=== PATIENT | female | born 1950 | race Native Hawaiian/Other Pacific Islander ===

== ENCOUNTER 2016-09-04 18:48 | Inpatient (IN) | payer MEDICARE, OTHER ==
[2016-09-04 18:48] VITALS: BMI 25.0
--- NOTE | 2016-09-04 19:19 | C.PDOC ---
Time Seen by Provider: 09/04/16 19:18 Chief Complaint (Nursing): Chest Pain Past Medical History Vital Signs: Last Vital Signs Temp Pulse 96 H 09/04/16 18:59 Resp 18 09/04/16 18:59 BP 199/103 H 09/04/16 18:59 Pulse Ox 100 09/04/16 18:59 - Medical History PMH: Arthritis, HTN, Parkinson's Disease - [facility] Procedures REPLACE L HIP JT, FEMORAL W SYNTH SUB, UNCEMENT, OPEN (06/09/16) Family History: States: Unknown Family Hx - Social History Hx Alcohol Use: No Hx Substance Use: No - Immunization History Hx Tetanus Toxoid Vaccination: No Hx Influenza Vaccination: No Hx Pneumococcal Vaccination: No ED Course And Treatment O2 Sat by Pulse Oximetry: 100 Disposition Counseled Patient/Family Regarding: Studies Performed, Diagnosis - Disposition Disposition Time: 19:19
[2016-09-04 19:33] LABS: BASO # 0.1 K/uL (0.0-0.2); BASO % 1.3 % (0.0-2.0); EOS # 0.1 K/uL (0.0-0.7); EOS % 0.9 % (0.0-4.0); HEMATOCRIT 38.3 % (34.0-47.0); LYMPH # 2.7 K/uL (1.0-4.3); LYMPH % 34.3 % (20.0-40.0); MEAN CELL VOLUME 88.6 fL (81.0-99.0); MEAN CORPUSCULAR HEMOGLOBIN 29.4 pg (27.0-31.0); MEAN CORPUSCULAR HGB CONC 33.2 g/dL (33.0-37.0); MEAN PLATELET VOLUME 7.4 fL (7.2-11.7); MONO # 0.5 K/uL (0.0-0.8); MONO % 6.5 % (0.0-10.0); WHITE BLOOD COUNT 7.7 K/uL (4.8-10.8)
--- NOTE | 2016-09-04 19:37 | C.PDOC ---
"History Of Present Illness 66 y/o female PMHx of HTN and Parkinson's disease presents to the ED with complains of chest pain and mild SOB since this afternoon, when she was in the middle of physical therapy. Pain is sternal, nonradiating, non pleuritic, not associated with any nausea/vomiting. Pt is s/p left hip replacement 05/2016. Pt took her daily Metoprolol and Norvasc, and was given 4 ASA and extra dose of Norvasc after CP started. She denies vomiting, headache, dizziness, cough, fever. Time Seen by Provider: 09/04/16 19:18 Chief Complaint (Nursing): Chest Pain History Per: Patient, Family (sister) History/Exam Limitations: language barrier Onset/Duration Of Symptoms: Hrs Current Symptoms Are (Timing): Still Present Severity: Mild Past Medical History Reviewed: Historical Data, Nursing Documentation, Vital Signs Vital Signs: Last Vital Signs Temp 98.4 F 09/04/16 21:10 Pulse 70 09/04/16 21:10 Resp 18 09/04/16 21:10 BP 161/85 H 09/04/16 21:10 Pulse Ox 99 09/04/16 21:54 - Medical History PMH: Arthritis, HTN, Parkinson's Disease - [facility] Procedures REPLACE L HIP JT, FEMORAL W SYNTH SUB, UNCEMENT, OPEN (06/09/16) Family History: States: No Known Family Hx - Social History Hx Alcohol Use: No Hx Substance Use: No - Immunization History Hx Tetanus Toxoid Vaccination: No Hx Influenza Vaccination: No Hx Pneumococcal Vaccination: No Review Of Systems Except As Marked, All Systems Reviewed And Found Negative. Constitutional: Negative for: Fever Cardiovascular: Positive for: Chest Pain. Negative for: Palpitations Respiratory: Positive for: Shortness of Breath. Negative for: Cough Gastrointestinal: Negative for: Nausea, Vomiting, Abdominal Pain, Diarrhea Neurological: Negative for: Dizziness Physical Exam - Physical Exam Appears: Well, Non-toxic, No Acute Distress Skin: Warm, Dry, No Rash Head: Normacephalic Eye(s): bilateral: Normal Inspection Oral Mucosa: Moist Neck: Normal, Normal ROM, Supple Chest: Symmetrical, No Tenderness Cardiovascular: Rhythm Regular Respiratory: Normal Breath Sounds, No Rales, No Rhonchi, No Wheezing Gastrointestinal/Abdominal: Normal Exam, Bowel Sounds, Soft, No Tenderness Extremity: Normal ROM, No Pedal Edema, Calf Tenderness (right, mild), No Deformity, Other (healed surgical scar to left hip) Neurological/Psych: Oriented x3, Other (resting tremor in hands) ED Course And Treatment - Laboratory Results Result Diagrams: 09/04/16 19:30 09/04/16 19:30 O2 Sat by Pulse Oximetry: 99 (on room air) Pulse Ox Interpretation: Normal - CT Scan/US CTA CHEST ANGIO Other Rad Studies (CT/US): Read By Radiologist, Radiology Report Reviewed CT/US Interpretation: [facility]. [facility]. Preliminary Radiology Report Call: [phone]. assistance Online chat: [email or web address] Name: BROOKE ARAUJO Age: 66Years F Date: 09/04/2016. Requesting Physician: YAMILETH WELLS : 1950. [facility] Procedure Ordered As Accession Number of Images. CTA CHEST CT ANGIO CHEST PE PROTOCOL [id number]. Provided Clinical History: CHEST PAIN, S/P HIP REPLACEMENT, R/O PE. Page 1 of 2. EXAM: CT Angiography Chest With Intravenous Contrast. CLINICAL HISTORY: 66 years old, female; Pain; Chest pain ; Type not specified; Additional info: Chest pain, S/P hip. replacement, R/O pe. TECHNIQUE: Axial computed tomographic angiography images of the chest with intravenous contrast using. pulmonary embolism protocol. This CT exam was performed using one or more of the following dose. reduction techniques: automated exposure control, adjustment of the mA and/or kV according to. patient size, and/or use of iterative reconstruction technique. Coronal and sagittal reformatted images were created and reviewed. CONTRAST: 100 mL of visi administered intravenously. EXAM DATE/TIME: 09/04/2016 7:20 PM. COMPARISON: No relevant prior studies available. FINDINGS: Pulmonary arteries : Unremarkable. No pulmonary embolism. Aorta: Mild ectasia of ascending thoracic aorta. No thoracic aortic aneurysm. Lungs: Strands of atelectasis or fibrosis in both lungs. No mass. Pleural space: Unremarkable. No significant effusion. No pneumothorax. Heart: Vascular calcifications including coronary artery calcifications. No significant pericardial. effusion. No evidence of RV dysfunction. Mediastinum: Equivocal wall thickening of the thoracic esophagus which may reflect luminal. collapse, with a component of esophagitis not excluded. Thyroid: Tiny left thyroid calcification. BROOKE ARAUJO | Preliminary Radiology Report. PUBLIC HEALTH ADMINISTRATOR (QA) DISCREPANCY? If there is a discrepancy between the preliminary and final interpretation, please notify [facility] via [email or web address]. If you do not have access to our QA portal, call our QA team at [phone]. CONFIDENTIALITY STATEMENT. This report is intended only for the use of the referring physician, and only in accordance with law, If you received this in error, call [phone]. Page 2 of 2. Bones/joints: Mild thoracic curve with degenerative change. No acute fracture. No dislocation. Soft tissues: Unremarkable. Lymph nodes: Unremarkable. No enlarged lymph nodes. Kidneys and ureters: There is a parapelvic cyst or possibly hydronephrosis involving right kidney not. adequately evaluated. IMPRESSION: 1. Equivocal wall thickening of the thoracic esophagus which may reflect luminal collapse, with a. component of esophagitis not excluded. 2. There is a parapelvic cyst or possibly hydronephrosis involving right kidney not adequately. evaluated. Thank you for allowing us to participate in the care of your patient. Dictated and Authenticated by: Phill Stapleton MD. 2016 9:29 PM Eastern Time ([place] & [place]) Progress Note: Plan: Blood work, EKG, CXR, CTA chest ordered and reviewed. - Scribe Statement The provider has reviewed the documentation as recorded by the Dixie Delgado Provider Attestation: All medical record entries made by the Dixie were at my direction and personally dictated by me. I have reviewed the chart and agree that the record accurately reflects my personal performance of the history, physical exam, medical decision making, and the department course for this patient. I have also personally directed, reviewed, and agree with the discharge instructions and disposition."
[2016-09-04 19:40] LABS: CHLORIDE 101 mmol/L (98-107)
[2016-09-04 19:41] LABS: INR 0.9; POTASSIUM 3.3 mmol/L (3.6-5.2); SODIUM 146 mmol/L (132-148)
[2016-09-04 19:43] LABS: ALB/GLOB RATIO 1.1 (1.0-2.1); ALKALINE PHOSPHATASE 98 U/L (38-126); ALT/SGPT 19 U/L (9-52); AST/SGOT 23 U/L (14-36); BILIRUBIN,TOTAL 0.3 mg/dL (0.2-1.3); BLOOD UREA NITROGEN 20 mg/dL (7-17); CARBON DIOXIDE 28 mmol/L (22-30); GFR AFRICAN-AMERICAN > 60; TOTAL PROTEIN 8.9 g/dL (6.3-8.3)
[2016-09-04 19:44] LABS: CALCIUM 9.7 mg/dl (8.6-10.4); GLUCOSE,RANDOM 89 mg/dL (65-105)
[2016-09-04] MEDS ORDERED: Iodixanol 320 MG/ML 100 ML BOTTLE IV ONE (20:12)
[2016-09-04] MEDS ORDERED: Potassium Chloride 20 mEq ER Tab PO STA (22:20)
[2016-09-04] MEDS ORDERED: Potassium Chloride 20 mEq ER Tab PO ONE (22:27)
--- NOTE | 2016-09-04 23:21 | CP.PCM.HP ---
<Katja Swanson - Last Filed: 09/05/16 02:09> History of Present Illness - History of Present Illness History of Present Illness: CC: "chest pain" HPI: Pt is 66F with medical history significant for Parkinson's disease and hypertension who presents to the emergency department with chest pain. Patient states she developed dull sternal, non-radiating chest pain while she was at physical therapy earlier this afternoon. She admits to mild shortness of breath with onset of chest pain. She denies nausea, vomiting, and diaphoresis. Patient recently had a left hip replacement in May 2016 but has been ambulating and not bed bound. Patient also complains of pain to left hip and right calf. Patient took Aspirin 81 mg x4 tabs and an extra dose of Norvasc 10 mg po prior to arrival to ED. She denies fever, chills, pleurtic chest pain, palpitations, nausea, vomiting, abdominal pain, constipation, diarrhea, and urinary symptoms and currently is resting comfortably. PMH: see HPI Medications: Carbidopa/Levodopa 10-100 tab po TID, Norvasc 10 mg po daily, Metoprolol 100 mg po BID Allergies: NKDA Family History: Mother - hypertension, DMII, COPD/Asthma Surgical History: L hip replacement Social: Never smoker. Denies alcohol and illicit drug use. Present on Admission - Present on Admission Any Indicators Present on Admission: No History of DVT/PE: No History of Uncontrolled Diabetes: No Urinary Catheter: No Decubitus Ulcer Present: No Review of Systems - Constitutional Constitutional: absent: Chills, Fatigue, Fever - EENT Eyes: absent: Change in Vision Ears: absent: Decreased Hearing, Ear Discharge Nose/Mouth/Throat: absent: Nasal Discharge, Nasal Obstruction - Cardiovascular Cardiovascular: Chest Pain, Chest Pain at Rest, Chest Pain with Activity. absent: Leg Edema - Respiratory Respiratory: Dyspnea - Gastrointestinal Gastrointestinal: absent: Abdominal Pain, Constipation, Diarrhea, Nausea, Vomiting - Genitourinary Genitourinary: absent: Change in Urinary Stream, Difficulty Urinating - Musculoskeletal Additional comments: right calf pain , L hip pain - Integumentary Integumentary: absent: New Lesions - Neurological Neurological: Tremor. absent: Confusion, Syncope - Psychiatric Psychiatric: absent: Anxiety, Depression Past Patient History - Past Medical History & Family History Past Medical History?: Yes - Past Social History Smoking Status: Never Smoked - CARDIAC Hx Hypertension: Yes - NEUROLOGICAL Hx Parkinson's Disease: Yes - HEENT Other/Comment: [place] - MUSCULOSKELETAL/RHEUMATOLOGICAL Hx Arthritis: Yes - PSYCHIATRIC Hx Substance Use: No - SURGICAL HISTORY Hx Surgeries: No - ANESTHESIA Hx Anesthesia: No Meds Allergies/Adverse Reactions: Allergies Allergy/AdvReac Type Severity Reaction Status Date / Time No Known Allergies Allergy Verified 09/04/16 19:01 Physical Exam - Constitutional Appears: Non-toxic, In Acute Distress - Head Exam Head Exam: ATRAUMATIC, NORMAL INSPECTION, NORMOCEPHALIC - Eye Exam Eye Exam: EOMI, Normal appearance Pupil Exam: PERRL - ENT Exam ENT Exam: Mucous Membranes Moist, Normal Exam - Neck Exam Neck exam: Positive for: Full Rom - Respiratory Exam Respiratory Exam: Chest Wall Tenderness, Clear to Auscultation Bilateral, NORMAL BREATHING PATTERN. absent: Rales, Rhonchi, Wheezes - Cardiovascular Exam Cardiovascular Exam: +S1, +S2. absent: Bradycardia, Tachycardia - GI/Abdominal Exam GI & Abdominal Exam: Normal Bowel Sounds, Soft. absent: Distended, Firm - Extremities Exam Extremities exam: Positive for: tenderness, pedal pulses present. Negative for : pedal edema Additional comments: right calf tenderness to palpation tenderness to palpation of left hip, surgical scar well healed - Back Exam Back exam: NORMAL INSPECTION - Neurological Exam Neurological exam: Alert, Oriented x3 Additional comments: upper extremity rigidity - Psychiatric Exam Psychiatric exam: Normal Affect, Normal Mood - Skin Skin Exam: Intact, Normal Color Results - Vital Signs Recent Vital Signs: Last Vital Signs Temp 98 F 09/04/16 23:08 Pulse 68 09/04/16 23:08 Resp 18 09/04/16 23:08 BP 139/75 09/04/16 23:08 Pulse Ox 98 09/04/16 23:08 - Labs Result Diagrams: 09/04/16 19:30 09/04/16 19:30 Assessment & Plan - Assessment and Plan (Free Text) Assessment: 1. Chest Pain Troponin I <0.0120 EKG: NSR, ST depression in lateral leads f/u ERIC panel and serial EKGs ASA 81 mg po daily Metoprolol 100 mg po BID Crestor 2.5 mg po HS Morphine given in ED f/u lipid panel, hemoglobin a1c, TSH, T4 Cardiology consulted, Dr. Yaritza Harman, f/u recs 2. Hypertension Continue home medications: Metoprolol 100 mg po BID Norvasc 10 mg po daily Monitor 3. Parkinson's disease Continue home medication: Carbidopa/Levodopa 10-100 mg tab po TID 4. Prophylaxis Lovenox 40 mg SC daily Pepcid 20 mg po daily SCD - Date & Time Date: 09/05/16 Time: 02:18 <Jose Arriaga - Last Filed: 09/05/16 06:26> Results - Vital Signs Recent Vital Signs: Last Vital Signs Temp 98.8 F 09/05/16 01:27 Pulse 75 09/05/16 01:27 Resp 20 09/05/16 01:27 BP 145/94 H 09/05/16 01:27 Pulse Ox 98 09/05/16 01:27 - Labs Result Diagrams: 09/04/16 19:30 09/04/16 19:30 Labs: Laboratory Results - last 24 hr 09/05/16 01:41 Total Creatine Kinase 55 CK-MB (Mass) 0.67 Troponin I, Quant < 0.0120 Assessment & Plan - Date & Time Date: 09/05/16 (I have seen and examined the patient. I agree with the findings and plan of care as documented by Dr. Swanson. Patient with chest pain. History of hypertension. ROMIx3 with EKG. Aspirin and Statin. Continue home meds. Consult to cardio. Monitor for acute changes on tele. ) Time: 06:26 Attending/Attestation - Attestation I have personally seen and examined this patient.: Yes I have fully participated in the care of the patient.: Yes I have reviewed all pertinent clinical information: Yes
--- NOTE | 2016-09-05 08:58 | CP.PCM.PN ---
Subjective - Date & Time of Evaluation Date of Evaluation: 09/05/16 Time of Evaluation: 07:45 - Subjective Subjective: PGY1 Medicine Note - Dr. Waldron Patient seen and examined at bedside, resting comfortably. No overnight events as per nursing. Patient states that her chest pain has lessened in severity, but is still present -dull, aching pain that radiates to the left arm, worse with inspiration. Patient also complains of orthopnea since the end of June, has to sleep lateral recumbent to prevent SOB. +BM, +urination; reports no appetite. C/o intermittent pain to the left hip and right leg X1 week. States right leg pain is localized to the knee and below; also reports that she gets a lump on the lateral knee whenever she takes a shower, but attributes this to arthritis. Patient states she is baseline able to ambulate with walker, but noticed that she now needs more assistance. Denies f/c, abdominal pain, N/V, D/C , back pain, numbness/ tingling, or any other acute complaints. Objective - Vital Signs/Intake and Output Vital Signs (last 24 hours): Temp Pulse Resp BP Pulse Ox 98.3 F 80 20 163/78 H 97 09/05/16 07:17 09/05/16 07:17 09/05/16 07:17 09/05/16 07:17 09/05/16 07:17 - Medications Medications: Current Medications Amlodipine Besylate (Norvasc) 10 mg PO DAILY [facility] Aspirin (Aspirin Chewable) 81 mg PO DAILY [facility] Carbidopa/Levodopa (Sinemet 10/100) 1 tab PO TID [facility] Enoxaparin Sodium (Lovenox) 40 mg SC DAILY [facility] Famotidine (Pepcid) 20 mg PO DAILY [facility] Influenza Virus Vaccine (Afluria) 45 mcg IM .ONCE ONE Stop: 09/07/16 10:01 Pneumococcal Polyvalent Vaccine (Pneumovax 23 Vaccine) 0.5 ml IM .ONCE ONE Stop: 09/07/16 10:01 Rosuvastatin Calcium (Crestor) 2.5 mg PO HS [facility] - Labs Labs: PT 10.5 SECONDS (9.7-12.2) 09/04/16 19:30 INR 0.9 09/04/16 19:30 APTT 32 SECONDS (21-34) 09/04/16 19:30 - Additional Findings Additional findings: - Constitutional Appears: Non-toxic, In Acute Distress - Head Exam Head Exam: ATRAUMATIC, NORMAL INSPECTION, NORMOCEPHALIC - Eye Exam Eye Exam: EOMI, Normal appearance Pupil Exam: PERRL - ENT Exam ENT Exam: Mucous Membranes Moist, Normal Exam - Neck Exam Neck exam: Positive for: Full Rom - Respiratory Exam Respiratory Exam: Chest Wall Tenderness, Clear to Auscultation Bilateral, NORMAL BREATHING PATTERN. absent: Rales, Rhonchi, Wheezes - Cardiovascular Exam Cardiovascular Exam: +S1, +S2. absent: Bradycardia, Tachycardia - GI/Abdominal Exam GI & Abdominal Exam: Normal Bowel Sounds, Soft. absent: Distended, Firm - Extremities Exam Extremities exam: Positive for: tenderness, pedal pulses present. Negative for : pedal edema Additional comments: tenderness to palpation of lower legs bilaterally; cyst-like bumps on anterior aspect of knees bilaterally; well-healed surgical scar on left hip; 5/5 muscle strength in all extremities, sensation intact; full ROM; +pedal pulses bilaterally - Back Exam Back exam: NORMAL INSPECTION - Neurological Exam Neurological exam: Alert, Oriented x3 Additional comments: - upper extremity rigidity - intention tremor in both hands - Psychiatric Exam Psychiatric exam: Normal Affect, Normal Mood - Skin Skin Exam: Intact, Normal Color Assessment and Plan - Assessment and Plan (Free Text) Assessment: 1. Chest Pain ERIC negative x3 EKG: NSR, ST depression in lateral leads ASA 81 mg po daily Metoprolol 100 mg po BID Crestor 2.5 mg po HS Morphine given in ED Normal: lipid panel, hemoglobin a1c, TSH, T4 Cardiology consulted, Dr. Yaritza Harman, f/u recs -> for cardiac cath Mon 09/[address] Joshi (spoke to family/patient) Daughter, Sapna [phone] 2. Hypertension 09/05: 169/97, BP elevated, continue to monitor Continue home medications: Metoprolol 100 mg po BID Norvasc 10 mg po daily Lisinopril 10mg daily (09/05) 3. Parkinson's disease Continue home medication: Carbidopa/Levodopa 10-100 mg tab po TID Neurology consult, Dr. Handley - f/u recs 4. Electrolyte abnormality -Hypokalemia, K3.2 - monitor and replete 5. Prophylaxis Lovenox 40 mg SC daily Pepcid 20 mg po daily SCD
--- NOTE | 2016-09-05 09:03 | CT ---
CT chest with IV contrast Indication: CHEST PAIN, S/P HIP REPLACEMENT, R/O PE Technique: Contiguous axial images were obtained through the chest with intravenous contrast enhancement. Sagittal and coronal reconstructions were generated and reviewed. IV Contrast: 100 mL Visipaque Radiation dose (DLP): 254.75 MGy-cm. Comparison: Chest x-ray performed 08/08/15 Findings: Visualized portions of the inferior thyroid gland appear heterogeneous and contains bilateral tiny calcifications. The mediastinal and hilar vascular structures appear within normal limits. The heart appears within normal limits of size. Atherosclerotic calcifications of the aorta. Mild aortic ectasia. Coronary artery calcifications. No large central or segmental pulmonary embolus evident. Bibasilar atelectasis. No pleural effusion. No pneumothorax. No suspicious pulmonary nodules measuring greater than 5 mm. Esophageal wall thickening. Small hiatal hernia. Limited visualization of the upper abdomen appears grossly unremarkable except for parapelvic cysts versus hydronephrosis of the right kidney, partially imaged. Mild degenerative changes of the spine. Impression: No large central or segmental pulmonary embolus identified. Esophageal wall thickening. Small hiatal hernia. Recommend clinical correlation. Endoscopy may be considered in the proper clinical setting. Right parapelvic cyst versus hydronephrosis, partially imaged upper abdomen. Heterogeneous appearance of the thyroid gland including tiny bilateral calcifications. Outpatient thyroid ultrasound may be considered for further evaluation if indicated. Preliminary impression was provided by virtual radiologic.
--- NOTE | 2016-09-05 10:10 | RAD ---
PROCEDURE: CHEST RADIOGRAPH, 1 VIEW HISTORY: CP COMPARISON: 06/09/2016 FINDINGS: LUNGS: Clear. PLEURA: No pneumothorax or pleural fluid seen. CARDIOVASCULAR: Normal. OSSEOUS STRUCTURES: No significant abnormalities. VISUALIZED UPPER ABDOMEN: Normal. OTHER FINDINGS: None. IMPRESSION: No focal airspace opacity.
[2016-09-05] MEDS: Enoxaparin 40 mg Syringe SC SCH (10:55)
[2016-09-05 12:09] LABS: CHLORIDE 102 mmol/L (98-107); POTASSIUM 3.2 mmol/L (3.6-5.2); SODIUM 143 mmol/L (132-148)
[2016-09-05 12:11] LABS: BILIRUBIN,TOTAL 0.4 mg/dL (0.2-1.3); CARBON DIOXIDE 24 mmol/L (22-30); CHOLESTEROL 301 mg/dL (0-199); GFR AFRICAN-AMERICAN > 60
[2016-09-05 12:12] LABS: ALB/GLOB RATIO 1.2 (1.0-2.1); ALKALINE PHOSPHATASE 96 U/L (38-126); ALT/SGPT 10 U/L (9-52); AST/SGOT 25 U/L (14-36); BLOOD UREA NITROGEN 18 mg/dL (7-17); CALCIUM 9.6 mg/dl (8.6-10.4); GLUCOSE,RANDOM 93 mg/dL (65-105); MAGNESIUM 2.2 mg/dL (1.6-2.3); PHOSPHOROUS 3.7 mg/dL (2.5-4.5); TOTAL PROTEIN 8.6 g/dL (6.3-8.3)
[2016-09-05] MEDS ORDERED: Potassium Chloride 20 mEq/15 ml LIQ UD PO ONE (12:15)
[2016-09-05 12:20] LABS: BASO # 0.1 K/uL (0.0-0.2); BASO % 0.9 % (0.0-2.0); EOS # 0.1 K/uL (0.0-0.7); EOS % 1.3 % (0.0-4.0); LYMPH # 1.9 K/uL (1.0-4.3); LYMPH % 30.2 % (20.0-40.0); MEAN CELL VOLUME 88.9 fL (81.0-99.0); MEAN CORPUSCULAR HEMOGLOBIN 29.2 pg (27.0-31.0); MEAN CORPUSCULAR HGB CONC 32.9 g/dL (33.0-37.0); MEAN PLATELET VOLUME 7.6 fL (7.2-11.7); MONO # 0.5 K/uL (0.0-0.8); MONO % 7.9 % (0.0-10.0); RED CELL DISTRIBUTION WIDTH 13.4 % (11.5-14.5); WHITE BLOOD COUNT 6.4 K/uL (4.8-10.8)
[2016-09-05 12:32] LABS: T4 9.28 ug/dL (5.5-11.0)
[2016-09-05 12:45] LABS: THYROID STIMULATING HORMONE 0.48 mIU/L (0.46-4.68)
--- NOTE | 2016-09-05 13:32 | CP.PCM.PN ---
Subjective - Date & Time of Evaluation Date of Evaluation: 09/05/16 Time of Evaluation: 13:31 - Subjective Subjective: CARDIAC CONSULT DONE . FOR CARDIAC CATH. DR. KIRKPATRICK. Objective - Vital Signs/Intake and Output Vital Signs (last 24 hours): Temp Pulse Resp BP Pulse Ox 98.8 F 87 20 164/83 H 98 09/05/16 12:11 09/05/16 12:44 09/05/16 12:11 09/05/16 12:44 09/05/16 12:11 - Medications Medications: Current Medications Amlodipine Besylate (Norvasc) 10 mg PO DAILY [facility] Last Admin: 09/05/16 10:57 Dose: 10 mg Aspirin (Aspirin Chewable) 81 mg PO DAILY [facility] Last Admin: 09/05/16 10:55 Dose: 81 mg Carbidopa/Levodopa (Sinemet ) 1 tab PO TID [facility] Last Admin: 09/05/16 10:58 Dose: 1 tab Enoxaparin Sodium (Lovenox) 40 mg SC DAILY [facility] Last Admin: 09/05/16 10:55 Dose: 40 mg Famotidine (Pepcid) 20 mg PO DAILY [facility] Last Admin: 09/05/16 10:57 Dose: 20 mg Influenza Virus Vaccine (Afluria) 45 mcg IM .ONCE ONE Stop: 09/07/16 10:01 Lisinopril (Zestril) 10 mg PO DAILY [facility] Last Admin: 09/05/16 12:44 Dose: 10 mg Pneumococcal Polyvalent Vaccine (Pneumovax 23 Vaccine) 0.5 ml IM .ONCE ONE Stop: 09/07/16 10:01 Rosuvastatin Calcium (Crestor) 2.5 mg PO HS [facility] - Labs Labs: 09/05/16 11:55 09/05/16 11:55 PT 10.5 SECONDS (9.7-12.2) 09/04/16 19:30 INR 0.9 09/04/16 19:30 APTT 32 SECONDS (21-34) 09/04/16 19:30
--- NOTE | 2016-09-05 14:31 | CON ---
DATE: 09/05/2016 HISTORY OF PRESENT ILLNESS: This is a 66-year-old [place] female who came to the Emergency Room wit h history of retrosternal pain and chest pain associated with radiation to the left shoulder and left arm. The patient claims this pain is dull aching. The patient also has history of mild shortness o f breath with the chest pain. She denies nausea, vomiting and diaphoresis. The patient recently had left hip replacement, in 05/2016, but has been ambulating. No history of abdominal pain. No palpit ation. REVIEW OF SYSTEMS: CARDIOVASCULAR: As above. RESPIRATORY: Positive for mild shortness of breath. GASTROINTESTINAL: Negative for nausea, vomiting, diarrhea. CENTRAL NERVOUS SYSTEM: No focal neurological complaints offered. EXTREMITIES: No edema of the legs. GENITOURINARY: No urinary complaints. PSYCHIATRIC: The patient is stable. All other systems are negative. PAST MEDICAL HISTORY: History of Parkinson disease. Hypertension. Diabetes. COPD and asthma. FAMILY HISTORY: Positive for diabetes and high blood pressure. The patient had a left hip replaceme nt done recently. SOCIAL HISTORY: Nonsmoker, nonalcoholic, no IVDA. MEDICATIONS: Carbidopa, levodopa, Norvasc and metoprolol. PHYSICAL EXAMINATION: GENERAL: This is a 66-year-old female, awake, alert, comfortable. VITAL SIGNS: Temperature 98 degrees, pulse 68, respiration 18, blood pressure 139/75 mmHg, pulse ox is 98% at room air. HEENT: Normal. NECK: JVP is flat. Carotid: No bruit. LUNGS: No rales, no wheezing. HEART: S1, S2 normal. No gallop, no murmur. ABDOMEN: Soft, nontender, no organomegaly. CENTRAL NERVOUS SYSTEM: No focal neurological deficit. EXTREMITIES: No edema of the legs. LABORATORY DATA: On admission, CBC is within normal limit. Hypokalemia present. EKG is normal sinu s rhythm with first degree AV block. ST depression in lateral leads. IMPRESSION: Chest pain, possible coronary artery disease. ____ negative. Hypertension. Parkinson disease. SUGGESTIONS: Agree with present management. The patient still has persistent chest pain, so she is not a candidate for a stress test. Cardiac catheterization is advised for further coronary artery an d chest pain evaluation. The patient also needs echocardiogram. Control blood pressure. Other work up as needed. Consult with Dr. Joshi for cardiac catheterization. Jakob Harman MD cc: [id number] TT: 09/05/2016 14:30:30 Confirmation # [id number] Dictation # [id number]
[2016-09-05] MEDS: Rosuvastatin Calcium 2.5 mg Tab PO SCH (21:32)
--- NOTE | 2016-09-05 22:47 | CP.PCM.CON ---
History of Present Illness - History of Present Illness History of Present Illness: 66 F with hx of HTN, hyperlipidemia admitted with Unstable angina Cardiac cath recommended by Cardiology consult Dr. Yaritza Harman Patient scheduled for cath Thursday Plan d/w Patient and her family who are in agreement Pt is 66F with medical history significant for Parkinson's disease and hypertension who presents to the emergency department with chest pain. Patient states she developed dull sternal, non-radiating chest pain while she was at physical therapy earlier this afternoon. She admits to mild shortness of breath with onset of chest pain. She denies nausea, vomiting, and diaphoresis. Patient recently had a left hip replacement in May 2016 but has been ambulating and not bed bound. Patient also complains of pain to left hip and right calf. Patient took Aspirin 81 mg x4 tabs and an extra dose of Norvasc 10 mg po prior to arrival to ED. She denies fever, chills, pleurtic chest pain, palpitations, nausea, vomiting, abdominal pain, constipation, diarrhea, and urinary symptoms and currently is resting comfortably. PMH: see HPI Medications: Carbidopa/Levodopa 10-100 tab po TID, Norvasc 10 mg po daily, Metoprolol 100 mg po BID Allergies: NKDA Family History: Mother - hypertension, DMII, COPD/Asthma Surgical History: L hip replacement Social: Never smoker. Denies alcohol and illicit drug use. Present on Admission - Present on Admission Any Indicators Present on Admission: No History of DVT/PE: No History of Uncontrolled Diabetes: No Urinary Catheter: No Decubitus Ulcer Present: No Review of Systems - Constitutional Constitutional: absent: Chills, Fatigue, Fever - EENT Eyes: absent: Change in Vision Ears: absent: Decreased Hearing, Ear Discharge Nose/Mouth/Throat: absent: Nasal Discharge, Nasal Obstruction - Cardiovascular Cardiovascular: Chest Pain, Chest Pain at Rest, Chest Pain with Activity. absent: Leg Edema - Respiratory Respiratory: Dyspnea - Gastrointestinal Gastrointestinal: absent: Abdominal Pain, Constipation, Diarrhea, Nausea, Vomiting - Genitourinary Genitourinary: absent: Change in Urinary Stream, Difficulty Urinating - Musculoskeletal Additional comments: right calf pain , L hip pain - Integumentary Integumentary: absent: New Lesions - Neurological Neurological: Tremor. absent: Confusion, Syncope - Psychiatric Psychiatric: absent: Anxiety, Depression Meds Allergies/Adverse Reactions: Allergies Allergy/AdvReac Type Severity Reaction Status Date / Time No Known Allergies Allergy Verified 09/04/16 19:01 Physical Exam - Constitutional Appears: Non-toxic, In Acute Distress - Head Exam Head Exam: ATRAUMATIC, NORMAL INSPECTION, NORMOCEPHALIC - Eye Exam Eye Exam: EOMI, Normal appearance Pupil Exam: PERRL - ENT Exam ENT Exam: Mucous Membranes Moist, Normal Exam - Neck Exam Neck exam: Positive for: Full Rom - Respiratory Exam Respiratory Exam: Chest Wall Tenderness, Clear to Auscultation Bilateral, NORMAL BREATHING PATTERN. absent: Rales, Rhonchi, Wheezes - Cardiovascular Exam Cardiovascular Exam: +S1, +S2. absent: Bradycardia, Tachycardia - GI/Abdominal Exam GI & Abdominal Exam: Normal Bowel Sounds, Soft. absent: Distended, Firm - Extremities Exam Extremities exam: Positive for: tenderness, pedal pulses present. Negative for : pedal edema Additional comments: right calf tenderness to palpation tenderness to palpation of left hip, surgical scar well healed - Back Exam Back exam: NORMAL INSPECTION - Neurological Exam Neurological exam: Alert, Oriented x3 Additional comments: upper extremity rigidity - Psychiatric Exam Psychiatric exam: Normal Affect, Normal Mood - Skin Skin Exam: Intact, Normal Color Past Patient History - Past Medical History & Family History Past Medical History?: Yes - Past Social History Smoking Status: Never Smoked - CARDIAC Hx Hypertension: Yes - PULMONARY Hx Respiratory Disorders: No - NEUROLOGICAL Hx Parkinson's Disease: Yes - HEENT Other/Comment: TANANA - RENAL Hx Chronic Kidney Disease: No - ENDOCRINE/METABOLIC Hx Endocrine Disorders: No - HEMATOLOGICAL/ONCOLOGICAL Hx Blood Disorders: No - INTEGUMENTARY Hx Dermatological Problems: No - MUSCULOSKELETAL/RHEUMATOLOGICAL Hx Arthritis: Yes - GASTROINTESTINAL Hx Gastrointestinal Disorders: No - GENITOURINARY/GYNECOLOGICAL Hx Genitourinary Disorders: No - PSYCHIATRIC Hx Substance Use: No - SURGICAL HISTORY Hx Surgeries: No - ANESTHESIA Hx Anesthesia: No Meds Allergies/Adverse Reactions: Allergies Allergy/AdvReac Type Severity Reaction Status Date / Time No Known Allergies Allergy Verified 09/04/16 19:01 - Medications Medications: Current Medications Amlodipine Besylate (Norvasc) 10 mg PO DAILY [facility] Last Admin: 09/05/16 10:57 Dose: 10 mg Aspirin (Aspirin Chewable) 81 mg PO DAILY [facility] Last Admin: 09/05/16 10:55 Dose: 81 mg Carbidopa/Levodopa (Sinemet 10/100) 1 tab PO BID [facility] Last Admin: 09/05/16 17:50 Dose: 1 tab Enoxaparin Sodium (Lovenox) 40 mg SC DAILY [facility] Last Admin: 09/05/16 10:55 Dose: 40 mg Famotidine (Pepcid) 20 mg PO DAILY [facility] Last Admin: 09/05/16 10:57 Dose: 20 mg Influenza Virus Vaccine (Afluria) 45 mcg IM .ONCE ONE Stop: 09/07/16 10:01 Lisinopril (Zestril) 10 mg PO DAILY [facility] Last Admin: 09/05/16 12:44 Dose: 10 mg Pneumococcal Polyvalent Vaccine (Pneumovax 23 Vaccine) 0.5 ml IM .ONCE ONE Stop: 09/07/16 10:01 Rosuvastatin Calcium (Crestor) 2.5 mg PO HS [facility] Last Admin: 09/05/16 21:32 Dose: 2.5 mg Results - Vital Signs Recent Vital Signs: Last Vital Signs Temp 98.5 F 09/05/16 21:37 Pulse 82 09/05/16 22:18 Resp 18 09/05/16 21:37 BP 128/72 09/05/16 21:37 Pulse Ox 98 09/05/16 19:41 - Labs Result Diagrams: 09/06/16 07:45 09/06/16 07:45 Labs: Laboratory Results - last 24 hr 09/05/16 09/05/16 09/05/16 01:41 06:39 11:55 WBC 6.4 RBC 4.50 Hgb 13.1 Hct 40.0 MCV 88.9 MCH 29.2 MCHC 32.9 L RDW 13.4 Plt Count 341 MPV 7.6 Neut % (Auto) 59.7 Lymph % (Auto) 30.2 Ferry % (Auto) 7.9 Eos % (Auto) 1.3 Baso % (Auto) 0.9 Neut # 3.8 Lymph # 1.9 Ferry # 0.5 Eos # 0.1 Baso # 0.1 Sodium 143 Potassium 3.2 L Chloride 102 Carbon Dioxide 24 Anion Gap 20 BUN 18 H Creatinine 0.6 L Est GFR ( Amer) > 60 Est GFR (Non-Af Amer) > 60 Random Glucose 93 Hemoglobin A1c 5.4 Calcium 9.6 Phosphorus 3.7 Magnesium 2.2 Total Bilirubin 0.4 AST 25 ALT 10 Alkaline Phosphatase 96 Total Creatine Kinase 55 52 CK-MB (Mass) 0.67 1.05 Troponin I, Quant < 0.0120 0.0150 Total Protein 8.6 H Albumin 4.6 Globulin 4.0 H Albumin/Globulin Ratio 1.2 Triglycerides 137 D Cholesterol 301 H LDL Cholesterol Direct 150 H HDL Cholesterol 75 H Thyroxine (T4) 9.28 TSH 3rd Generation 0.48 Assessment & Plan - Assessment and Plan (Free Text) Assessment: 1. Chest Pain For Cath Thursday 2. Hypertension Continue home medications: Metoprolol 100 mg po BID Norvasc 10 mg po daily Monitor 3. Parkinson's disease Continue home medication: Carbidopa/Levodopa 10-100 mg tab po TID 4. Prophylaxis Lovenox 40 mg SC daily Pepcid 20 mg po daily SCD
--- NOTE | 2016-09-06 07:52 | CP.PCM.PN ---
Subjective - Date & Time of Evaluation Date of Evaluation: 09/06/16 Time of Evaluation: 09:10 - Subjective Subjective: Internal medicine progress note for Dr. Chelo Rojas, PGY-1 Pt S & E at bedside. Pt indicating that she is having mid low back pain, is not eating much. Denies N /V/F/C, SOB, CP, DOZIER. Objective - Vital Signs/Intake and Output Vital Signs (last 24 hours): Temp Pulse Resp BP Pulse Ox 98.9 F 73 20 155/86 H 96 09/06/16 01:10 09/06/16 01:10 09/06/16 01:10 09/06/16 01:10 09/06/16 01:10 Intake and Output: 09/06/16 09/06/16 06:59 18:59 Intake Total 300 Balance 300 - Medications Medications: Current Medications Amlodipine Besylate (Norvasc) 10 mg PO DAILY [facility] Last Admin: 09/05/16 10:57 Dose: 10 mg Aspirin (Aspirin Chewable) 81 mg PO DAILY [facility] Last Admin: 09/05/16 10:55 Dose: 81 mg Carbidopa/Levodopa (Sinemet 10/) 1 tab PO BID [facility] Last Admin: 09/05/16 17:50 Dose: 1 tab Enoxaparin Sodium (Lovenox) 40 mg SC DAILY [facility] Last Admin: 09/05/16 10:55 Dose: 40 mg Famotidine (Pepcid) 20 mg PO DAILY [facility] Last Admin: 09/05/16 10:57 Dose: 20 mg Influenza Virus Vaccine (Afluria) 45 mcg IM .ONCE ONE Stop: 09/07/16 10:01 Lisinopril (Zestril) 10 mg PO DAILY [facility] Last Admin: 09/05/16 12:44 Dose: 10 mg Pneumococcal Polyvalent Vaccine (Pneumovax 23 Vaccine) 0.5 ml IM .ONCE ONE Stop: 09/07/16 10:01 Rosuvastatin Calcium (Crestor) 2.5 mg PO HS [facility] Last Admin: 09/05/16 21:32 Dose: 2.5 mg - Labs Labs: 09/05/16 11:55 09/05/16 11:55 PT 10.5 SECONDS (9.7-12.2) 09/04/16 19:30 INR 0.9 09/04/16 19:30 APTT 32 SECONDS (21-34) 09/04/16 19:30 - Constitutional Appears: Non-toxic, No Acute Distress - Head Exam Head Exam: ATRAUMATIC, NORMAL INSPECTION, NORMOCEPHALIC - Eye Exam Eye Exam: EOMI, Normal appearance, PERRL Pupil Exam: NORMAL ACCOMODATION, PERRL - ENT Exam ENT Exam: Mucous Membranes Moist, Normal Exam - Neck Exam Neck Exam: Full ROM, Normal Inspection - Respiratory Exam Respiratory Exam: Clear to Ausculation Bilateral, NORMAL BREATHING PATTERN. absent: Rales, Rhonchi, Wheezes, Respiratory Distress - Cardiovascular Exam Cardiovascular Exam: REGULAR RHYTHM, +S1, +S2 - GI/Abdominal Exam GI & Abdominal Exam: Soft, Normal Bowel Sounds. absent: Distended, Tenderness - Extremities Exam Extremities Exam: Normal Inspection, Tenderness (over right distal thigh - no masses or lesions noted on exam) - Back Exam Back Exam: NORMAL INSPECTION, tenderness (midline/over spinous process of mid- low back, no lesions noted. ) - Neurological Exam Neurological Exam: Alert, Awake - Psychiatric Exam Psychiatric exam: Normal Affect, Normal Mood - Skin Skin Exam: Dry, Intact, Normal Color, Warm Assessment and Plan - Assessment and Plan (Free Text) Assessment: 1. Chest Pain ERIC negative x3 EKG: NSR, ST depression in lateral leads ASA 81 mg po daily Metoprolol 100 mg po BID Crestor 2.5 mg po HS Normal: lipid panel, hemoglobin a1c, TSH, T4 Pt to be made NPO after MN Thursday for cardiac cath Thursday per Adi 2. Hypertension 09/05: 169/97, BP elevated, continue to monitor Continue home medications: Metoprolol 100 mg po BID Norvasc 10 mg po daily Lisinopril 10mg daily (09/05) 3. Parkinson's disease Continue home medication: Carbidopa/Levodopa 10-100 mg tab po TID FU neuro consult 4. Back pain Capascin cream Heating pad Motrin Monitor 5. Hypokalemia- resolved K 3.8 Monitor 6. Prophylaxis Lovenox 40 mg SC daily Pepcid 20 mg po daily SCD Will DW attending
[2016-09-06 07:59] LABS: BASO # 0.1 K/uL (0.0-0.2); BASO % 1.2 % (0.0-2.0); EOS # 0.1 K/uL (0.0-0.7); EOS % 2.5 % (0.0-4.0); HEMATOCRIT 39.7 % (34.0-47.0); LYMPH # 1.9 K/uL (1.0-4.3); LYMPH % 32.7 % (20.0-40.0); MEAN CORPUSCULAR HEMOGLOBIN 29.2 pg (27.0-31.0); MEAN CORPUSCULAR HGB CONC 32.4 g/dL (33.0-37.0); MEAN PLATELET VOLUME 7.6 fL (7.2-11.7); MONO # 0.4 K/uL (0.0-0.8); MONO % 7.5 % (0.0-10.0); RED CELL DISTRIBUTION WIDTH 13.4 % (11.5-14.5)
[2016-09-06 08:14] LABS: CHLORIDE 103 mmol/L (98-107); SODIUM 145 mmol/L (132-148)
[2016-09-06 08:15] LABS: POTASSIUM 3.8 mmol/L (3.6-5.2)
[2016-09-06 08:16] LABS: CHOLESTEROL 267 mg/dL (0-199); GFR AFRICAN-AMERICAN > 60
[2016-09-06 08:17] LABS: ALB/GLOB RATIO 1.1 (1.0-2.1); ALKALINE PHOSPHATASE 87 U/L (38-126); ALT/SGPT 14 U/L (9-52); AST/SGOT 20 U/L (14-36); BILIRUBIN,TOTAL 0.5 mg/dL (0.2-1.3); BLOOD UREA NITROGEN 27 mg/dL (7-17); CARBON DIOXIDE 27 mmol/L (22-30); GLUCOSE,RANDOM 79 mg/dL (65-105); PHOSPHOROUS 4.1 mg/dL (2.5-4.5); TOTAL PROTEIN 7.9 g/dL (6.3-8.3)
[2016-09-06 08:18] LABS: CALCIUM 9.7 mg/dl (8.6-10.4); MAGNESIUM 2.3 mg/dL (1.6-2.3)
[2016-09-06 08:29] LABS: T4 9.09 ug/dL (5.5-11.0)
[2016-09-06 08:43] LABS: THYROID STIMULATING HORMONE 0.61 mIU/L (0.46-4.68)
[2016-09-06] MEDS: Enoxaparin 40 mg Syringe SC SCH (10:22)
--- NOTE | 2016-09-06 11:13 | CP.PCM.PN ---
Subjective - Date & Time of Evaluation Date of Evaluation: 09/06/16 Time of Evaluation: 11:12 - Subjective Subjective: NEG CP. Objective - Vital Signs/Intake and Output Vital Signs (last 24 hours): Temp Pulse Resp BP Pulse Ox 98.3 F 62 18 144/79 97 09/06/16 08:18 09/06/16 09:07 09/06/16 08:18 09/06/16 08:18 09/06/16 08:18 Intake and Output: 09/06/16 09/06/16 06:59 18:59 Intake Total 300 Balance 300 - Medications Medications: Current Medications Acetaminophen (Tylenol 325mg Tab) 650 mg PO Q6 PRN PRN Reason: Pain, moderate (4-7) Amlodipine Besylate (Norvasc) 10 mg PO DAILY [facility] Last Admin: 09/06/16 10:23 Dose: 10 mg Aspirin (Aspirin Chewable) 81 mg PO DAILY [facility] Last Admin: 09/06/16 10:22 Dose: 81 mg Carbidopa/Levodopa (Sinemet 10/100) 1 tab PO BID [facility] Last Admin: 09/06/16 10:23 Dose: 1 tab Carvedilol (Coreg) 3.125 mg PO BID [facility] Enoxaparin Sodium (Lovenox) 40 mg SC DAILY [facility] Last Admin: 09/06/16 10:22 Dose: 40 mg Famotidine (Pepcid) 20 mg PO DAILY [facility] Last Admin: 09/06/16 10:23 Dose: 20 mg Influenza Virus Vaccine (Afluria) 45 mcg IM .ONCE ONE Stop: 09/07/16 10:01 Lisinopril (Zestril) 10 mg PO DAILY [facility] Last Admin: 09/06/16 10:23 Dose: 10 mg Pneumococcal Polyvalent Vaccine (Pneumovax 23 Vaccine) 0.5 ml IM .ONCE ONE Stop: 09/07/16 10:01 Rosuvastatin Calcium (Crestor) 2.5 mg PO HS [facility] Last Admin: 09/05/16 21:32 Dose: 2.5 mg - Labs Labs: 09/06/16 07:45 09/06/16 07:45 PT 10.5 SECONDS (9.7-12.2) 09/04/16 19:30 INR 0.9 09/04/16 19:30 APTT 32 SECONDS (21-34) 09/04/16 19:30 - Constitutional Appears: No Acute Distress, Chronically Ill - Eye Exam Eye Exam: Normal appearance, PERRL - ENT Exam ENT Exam: Normal Exam - Respiratory Exam Respiratory Exam: Clear to Ausculation Bilateral, NORMAL BREATHING PATTERN - Cardiovascular Exam Cardiovascular Exam: REGULAR RHYTHM, +S1, +S2 - GI/Abdominal Exam GI & Abdominal Exam: Soft, Normal Bowel Sounds - Neurological Exam Neurological Exam: Alert, Awake, CN II-XII Intact, Normal Gait, Oriented x3 - Psychiatric Exam Psychiatric exam: Normal Affect, Normal Mood - Skin Skin Exam: Dry, Intact, Normal Color, Warm Assessment and Plan - Assessment and Plan (Free Text) Assessment: R/O CAD. Plan: FOR CATH THURSDAY.
[2016-09-06] MEDS: Rosuvastatin Calcium 2.5 mg Tab PO SCH (21:14)
[2016-09-06] MEDS: Nitroglycerin 2% Ointment Foilpak UD TOP SCH (21:15)
[2016-09-07 07:18] LABS: BASO # 0.1 K/uL (0.0-0.2); BASO % 0.6 % (0.0-2.0); EOS # 0.2 K/uL (0.0-0.7); EOS % 2.5 % (0.0-4.0); HEMATOCRIT 35.3 % (34.0-47.0); LYMPH # 1.8 K/uL (1.0-4.3); LYMPH % 20.8 % (20.0-40.0); MEAN CELL VOLUME 88.2 fL (81.0-99.0); MEAN CORPUSCULAR HEMOGLOBIN 29.4 pg (27.0-31.0); MEAN CORPUSCULAR HGB CONC 33.3 g/dL (33.0-37.0); MEAN PLATELET VOLUME 7.5 fL (7.2-11.7); MONO # 0.6 K/uL (0.0-0.8); MONO % 7.1 % (0.0-10.0); RED CELL DISTRIBUTION WIDTH 13.3 % (11.5-14.5); WHITE BLOOD COUNT 8.5 K/uL (4.8-10.8)
[2016-09-07 07:37] LABS: CHLORIDE 100 mmol/L (98-107)
[2016-09-07 07:38] LABS: POTASSIUM 3.9 mmol/L (3.6-5.2); SODIUM 139 mmol/L (132-148)
[2016-09-07 07:40] LABS: ALB/GLOB RATIO 1.2 (1.0-2.1); BILIRUBIN,TOTAL 0.7 mg/dL (0.2-1.3); CARBON DIOXIDE 29 mmol/L (22-30); GFR AFRICAN-AMERICAN > 60; TOTAL PROTEIN 7.2 g/dL (6.3-8.3)
[2016-09-07 07:41] LABS: ALKALINE PHOSPHATASE 81 U/L (38-126); ALT/SGPT 17 U/L (9-52); AST/SGOT 18 U/L (14-36); BLOOD UREA NITROGEN 32 mg/dL (7-17); CALCIUM 9.3 mg/dl (8.6-10.4); GLUCOSE,RANDOM 86 mg/dL (65-105); PHOSPHOROUS 4.8 mg/dL (2.5-4.5)
[2016-09-07 07:42] LABS: MAGNESIUM 2.2 mg/dL (1.6-2.3)
--- NOTE | 2016-09-07 09:06 | CARD ---
APPROVED REPORT EKG Measurement Heart [id number] <Conclusion> Normal sinus rhythm
[2016-09-07] MEDS: Nitroglycerin 2% Ointment Foilpak UD TOP SCH (09:57)
[2016-09-07] MEDS: Enoxaparin 40 mg Syringe SC SCH (09:57)
[2016-09-07] MEDS ORDERED: Influenza Virus Vaccine 45 mcg/0.5 ml Syr IM ONE (10:00)
[2016-09-07] MEDS ORDERED: Pneumococcal 23-Valent Vaccine IM ONE (10:00)
--- NOTE | 2016-09-07 10:16 | CP.PCM.PN ---
Subjective - Date & Time of Evaluation Date of Evaluation: 09/07/16 Time of Evaluation: 08:45 - Subjective Subjective: Medical Attending Note: Follow-up: Chest Pain, Parkinson's disease, Hypertension patient seen, and examined at bedside. Patient reports while walking she has chest pain and shortness of breathe. Pending neurology consult recommendations given patient's history of parkinson's disease. Note: patient's preferred language is Tal[place], and speaks fluently Objective - Vital Signs/Intake and Output Vital Signs (last 24 hours): Temp Pulse Resp BP Pulse Ox 97.6 F 70 18 127/72 96 09/07/16 08:58 09/07/16 08:58 09/07/16 08:58 09/07/16 08:58 09/07/16 08:58 - Medications Medications: Current Medications Acetaminophen (Tylenol 325mg Tab) 650 mg PO Q6 PRN PRN Reason: Pain, moderate (4-7) Amlodipine Besylate (Norvasc) 10 mg PO DAILY [facility] Last Admin: 09/07/16 09:56 Dose: 10 mg Aspirin (Aspirin Chewable) 81 mg PO DAILY [facility] Last Admin: 09/07/16 09:56 Dose: 81 mg Carbidopa/Levodopa (Sinemet 10/100) 1 tab PO BID [facility] Last Admin: 09/07/16 09:57 Dose: 1 tab Carvedilol (Coreg) 3.125 mg PO BID [facility] Last Admin: 09/07/16 09:57 Dose: 3.125 mg Enoxaparin Sodium (Lovenox) 40 mg SC DAILY [facility] Last Admin: 09/07/16 09:57 Dose: 40 mg Famotidine (Pepcid) 20 mg PO DAILY [facility] Last Admin: 09/07/16 09:56 Dose: 20 mg Isosorbide Mononitrate (Imdur) 30 mg PO DAILY [facility] Last Admin: 09/07/16 09:57 Dose: 30 mg Lisinopril (Zestril) 10 mg PO DAILY [facility] Last Admin: 09/07/16 09:56 Dose: 10 mg Nitroglycerin (Nitro-Bid 2% Oint) 1 ea TOP Q12 [facility] Last Admin: 09/07/16 09:57 Dose: 1 ea Rosuvastatin Calcium (Crestor) 2.5 mg PO HS [facility] Last Admin: 09/06/16 21:14 Dose: 2.5 mg - Labs Labs: 09/07/16 07:00 09/07/16 07:00 PT 10.5 SECONDS (9.7-12.2) 09/04/16 19:30 INR 0.9 09/04/16 19:30 APTT 32 SECONDS (21-34) 09/04/16 19:30 - Constitutional Appears: Non-toxic, No Acute Distress - Head Exam Head Exam: NORMAL INSPECTION - Eye Exam Eye Exam: EOMI - ENT Exam ENT Exam: Mucous Membranes Dry - Respiratory Exam Respiratory Exam: Clear to Ausculation Bilateral, NORMAL BREATHING PATTERN. absent: Rales, Rhonchi, Wheezes - Cardiovascular Exam Cardiovascular Exam: REGULAR RHYTHM, +S1, +S2. absent: Diastolic murmur, JVD, RRR - GI/Abdominal Exam GI & Abdominal Exam: Soft, Normal Bowel Sounds. absent: Distended, Guarding, Rigid - Extremities Exam Extremities Exam: absent: Pedal Edema, Tenderness - Back Exam Back Exam: absent: CVA tenderness (L), CVA tenderness (R), paraspinal tenderness , rash noted, vertebral tenderness - Neurological Exam Neurological Exam: Alert, Awake, Oriented x3 - Psychiatric Exam Psychiatric exam: Normal Affect, Normal Mood - Skin Skin Exam: Dry, Intact, Normal Color, Warm Assessment and Plan (1) Chest pain of uncertain etiology Status: Acute (2) Parkinson disease Status: Acute (3) Hypertension Status: Acute - Assessment and Plan (Free Text) Assessment: 1. Chest Pain of Unclear etiology ERIC negative x3 EKG: NSR, ST depression in lateral leads Cardiology (Dr. Joshi) on case Patient is NPO after breakfast tomorrow for cardiac catherization hold ASA 81 mg po daily Crestor 2.5 mg po HS Normal: lipid panel, hemoglobin a1c, TSH, T4 Coreg 3.125mg PO bid Imdur 30mg Po daily Lisinopril 10mg Po daily Nitrobid 1 each top Q 12 PRN chest pain 2. Hypertension Coreg 3.125mg Po bid Norvasc 10 mg po daily Lisinopril 10mg daily 3. Parkinson's disease Continue home medication: Carbidopa/Levodopa 10-100 mg tab po TID FU neuro consult: pending 4. Back pain Capascin cream Heating pad d/c Motrin Monitor No complaints 5. Hypokalemia- resolved K 3.8 Monitor 6. Prophylaxis hold Lovenox 40 mg SC daily in anticipation for cardiac catherization in the afternoon hold Pepcid 20 mg po daily [facility]
[2016-09-07] MEDS ORDERED: POLYETHYLENE GLYCOL 3350 17 GM/Dose PACKET PO ONE (10:33)
[2016-09-07] MEDS ORDERED: Nitroglycerin 2% Ointment Foilpak UD TOP PRN (10:39)
--- NOTE | 2016-09-07 16:31 | CP.PCM.PN ---
Subjective - Date & Time of Evaluation Date of Evaluation: 09/07/16 Time of Evaluation: 11:30 - Subjective Subjective: CONDITION SAME. Objective - Vital Signs/Intake and Output Vital Signs (last 24 hours): Temp Pulse Resp BP Pulse Ox 98.4 F 82 20 148/71 97 09/07/16 16:00 09/07/16 16:00 09/07/16 16:00 09/07/16 16:00 09/07/16 16:00 - Medications Medications: Current Medications Acetaminophen (Tylenol 325mg Tab) 650 mg PO Q6 PRN PRN Reason: Pain, moderate (4-7) Amlodipine Besylate (Norvasc) 10 mg PO DAILY [facility] Last Admin: 09/07/16 09:56 Dose: 10 mg Aspirin (Aspirin Chewable) 81 mg PO DAILY [facility] Last Admin: 09/07/16 09:56 Dose: 81 mg Carbidopa/Levodopa (Sinemet 10/100) 1 tab PO BID [facility] Last Admin: 09/07/16 09:57 Dose: 1 tab Carvedilol (Coreg) 3.125 mg PO BID [facility] Last Admin: 09/07/16 09:57 Dose: 3.125 mg Enoxaparin Sodium (Lovenox) 40 mg SC DAILY [facility] Last Admin: 09/07/16 09:57 Dose: 40 mg Famotidine (Pepcid) 20 mg PO DAILY [facility] Last Admin: 09/07/16 09:56 Dose: 20 mg Isosorbide Mononitrate (Imdur) 30 mg PO DAILY [facility] Last Admin: 09/07/16 09:57 Dose: 30 mg Lisinopril (Zestril) 10 mg PO DAILY [facility] Last Admin: 09/07/16 09:56 Dose: 10 mg Nitroglycerin (Nitro-Bid 2% Oint) 1 ea TOP Q12 PRN PRN Reason: Chest pain Rosuvastatin Calcium (Crestor) 2.5 mg PO HS [facility] Last Admin: 09/06/16 21:14 Dose: 2.5 mg - Labs Labs: 09/07/16 07:00 09/07/16 07:00 PT 10.5 SECONDS (9.7-12.2) 09/04/16 19:30 INR 0.9 09/04/16 19:30 APTT 32 SECONDS (21-34) 09/04/16 19:30 - Constitutional Appears: No Acute Distress, Chronically Ill - Eye Exam Eye Exam: Normal appearance, PERRL - ENT Exam ENT Exam: Normal Exam - Respiratory Exam Respiratory Exam: Clear to Ausculation Bilateral, NORMAL BREATHING PATTERN - Cardiovascular Exam Cardiovascular Exam: REGULAR RHYTHM, +S1, +S2 - GI/Abdominal Exam GI & Abdominal Exam: Soft, Normal Bowel Sounds - Back Exam Back Exam: NORMAL INSPECTION - Neurological Exam Neurological Exam: Alert, Awake, CN II-XII Intact, Normal Gait, Oriented x3 - Psychiatric Exam Psychiatric exam: Normal Affect, Normal Mood Assessment and Plan - Assessment and Plan (Free Text) Assessment: R/O CAD. DM. Plan: FOR CARDIAC CATH IN AM.
[2016-09-07] MEDS: Rosuvastatin Calcium 2.5 mg Tab PO SCH (21:12)
--- NOTE | 2016-09-07 23:52 | CARD ---
APPROVED REPORT EKG Measurement Heart [id number] [place] [id number] <Conclusion> Sinus rhythm with 1st degree AV block Cannot rule out Anterior infarct, age undetermined Abnormal ECG
--- NOTE | 2016-09-08 07:49 | CON ---
DATE: 09/05/2016 REASON FOR THE CONSULTATION: Parkinson disease. CHIEF COMPLAINT: The patient was brought into [facility] with a history of chest pain. Because of the Parkinson disease history I was called in to evaluate her for further management. HISTORY OF PRESENTING ILLNESS: The patient is a 66-year-old right-handed Vietnamese female presenting with chest pain. The patient also carries a history of Parkinson disease, and been taking for a long time. No other medication is taken other than Sinemet. At present, she denies any headache, dizziness, cough , or any fevers. PAST MEDICAL HISTORY: Arthritis, hypertension, and Parkinson disease. ALLERGIES: No known allergies. REVIEW OF SYSTEMS: As per H and P. MEDICATIONS: Aspirin, statin, enoxaparin, amlodipine, famotidine, carbidopa/ levodopa, and lisinopril. VITAL SIGNS: Blood pressure 130/78, mean arterial pressure of 95, respiratory rate 16, temperature 98.3, with a pulse rate 79. NECK: Supple. No carotid bruit. HEART SOUNDS: Regular. CHEST: Fair air entry. EXTREMITIES: No edema in legs. NEUROLOGIC EXAMINATION: MENTAL STATUS EXAMINATION: She is awake, alert, oriented to person. She is hard of hearing. Speech is fluent. CRANIAL NERVE EXAMINATION: Visual field intact. Pupils react to light, extraocular movement, roving conjugate gaze. Upward gaze is intact. No facial sensory deficit. No facial asymmetry. 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 Tongue is midline. Good gag. MOTOR EXAMINATION: Outstretched hand with eyes closed, no drift noted. Power is symmetric on either side. DEEP TENDON REFLEXES: Biceps, brachioradialis, triceps 1+. Both knees are absent, both ankles are absent. Plantars are downgoing. COORDINATION: [id number] test: Dysmetria noted. The patient showed some titubation noted. 1. The patient does not show any evidence of a masked face. No resting tremor , no cogwheel rigidity, no retropulsion. No loss shuffling gait or festinating gait. At this point I doubt the patient does have Parkinson disease. 2. The patient does have titubation and the mid-cerebellar dysfunction. 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 WORKUP: Blood test Her WBC 6.4, hemoglobin 13.1, hematocrit 40, platelet 341. PT 10.4, INR 0.9, PTT 32. Sodium 143, potassium 3.2, chloride 102, bicarbonate 22, BUN 18, creatinine 0.6. GFR more than 60. Cholesterol 301, HDL 75, LDL 150. RECOMMENDATIONS: The patient does not have clinical sign of Parkinson disease. The best way to diagnose the patient may be benefited offering a DaTscan, which can be done as outpatient to establish any basal ganglia disease. At this point I do not want her to be on multiple medications, including a Parkinson medication. I would like to taper off twice a day and then a week from now once a day, and then that can be discontinued. If symptoms progressed or changes, then probably she may need medication. While she is in the hospital I will be following her. Otherwise safe to discharge. The patient will be following either or another neurologist for further management, including a DaTscan study for Parkinson disease. Husam Handley MD cc: [id number] TT: 09/05/2016 18:53:37 Confirmation # [id number] Dictation # [id number]
[2016-09-08 08:14] LABS: BASO % 0.4 % (0.0-2.0); EOS # 0.1 K/uL (0.0-0.7); EOS % 1.5 % (0.0-4.0); LYMPH # 1.7 K/uL (1.0-4.3); LYMPH % 21.7 % (20.0-40.0); MEAN CELL VOLUME 88.3 fL (81.0-99.0); MEAN CORPUSCULAR HGB CONC 32.9 g/dL (33.0-37.0); MEAN PLATELET VOLUME 7.8 fL (7.2-11.7); MONO # 0.7 K/uL (0.0-0.8); MONO % 9.6 % (0.0-10.0); RED CELL DISTRIBUTION WIDTH 13.2 % (11.5-14.5); WHITE BLOOD COUNT 7.8 K/uL (4.8-10.8)
[2016-09-08 08:28] LABS: CHLORIDE 101 mmol/L (98-107)
[2016-09-08 08:30] LABS: POTASSIUM 3.6 mmol/L (3.6-5.2); SODIUM 142 mmol/L (132-148)
[2016-09-08 08:31] LABS: ALB/GLOB RATIO 1.1 (1.0-2.1); ALKALINE PHOSPHATASE 84 U/L (38-126); ALT/SGPT 12 U/L (9-52); AST/SGOT 18 U/L (14-36); BILIRUBIN,TOTAL 0.8 mg/dL (0.2-1.3); BLOOD UREA NITROGEN 19 mg/dL (7-17); CARBON DIOXIDE 27 mmol/L (22-30); GFR AFRICAN-AMERICAN > 60; GLUCOSE,RANDOM 81 mg/dL (65-105); TOTAL PROTEIN 7.7 g/dL (6.3-8.3)
[2016-09-08 08:32] LABS: CALCIUM 9.4 mg/dl (8.6-10.4); PHOSPHOROUS 3.8 mg/dL (2.5-4.5)
[2016-09-08 08:33] LABS: MAGNESIUM 2.2 mg/dL (1.6-2.3)
--- NOTE | 2016-09-08 09:08 | CP.PCM.PN ---
<Bi Nobles - Last Filed: 09/08/16 21:06> Subjective - Date & Time of Evaluation Date of Evaluation: 09/08/16 Time of Evaluation: 07:35 - Subjective Subjective: PGY1 Medicine Note - Dr. Sher Patient seen and examined at bedside, resting comfortably. No overnight events as per nursing. Scheduled for Cardiac Cath with Dr. Joshi this afternoon. Patient reports continued chest pain and shortness of breath while ambulating. Pending neurology consult recommendations given patient's history of parkinson' s disease. Denies f/c, abdominal pain, N/V, D/C, back pain, numbness/ tingling, or any other acute complaints. Note: patient's preferred language is Talg[place], and speaks fluently Objective - Vital Signs/Intake and Output Vital Signs (last 24 hours): Temp Pulse Resp BP Pulse Ox 98 F 80 18 192/97 H 97 09/08/16 07:45 09/08/16 08:46 09/08/16 07:45 09/08/16 07:45 09/08/16 07:45 Intake and Output: 09/08/16 09/08/16 06:59 18:59 Intake Total 120 Output Total 1 Balance 119 - Medications Medications: Current Medications Acetaminophen (Tylenol 325mg Tab) 650 mg PO Q6 PRN PRN Reason: Pain, moderate (4-7) Amlodipine Besylate (Norvasc) 10 mg PO DAILY [facility] Last Admin: 09/08/16 08:15 Dose: 10 mg Aspirin (Aspirin Chewable) 81 mg PO DAILY [facility] Last Admin: 09/07/16 09:56 Dose: 81 mg Carbidopa/Levodopa (Sinemet 10/100) 1 tab PO BID [facility] Last Admin: 09/07/16 17:45 Dose: 1 tab Carvedilol (Coreg) 3.125 mg PO BID [facility] Last Admin: 09/08/16 08:16 Dose: 3.125 mg Enoxaparin Sodium (Lovenox) 40 mg SC DAILY [facility] Last Admin: 09/07/16 09:57 Dose: 40 mg Isosorbide Mononitrate (Imdur) 30 mg PO DAILY [facility] Last Admin: 09/07/16 09:57 Dose: 30 mg Lisinopril (Zestril) 10 mg PO DAILY [facility] Last Admin: 09/08/16 08:16 Dose: 10 mg Nitroglycerin (Nitro-Bid 2% Oint) 1 ea TOP Q12 PRN PRN Reason: Chest pain Rosuvastatin Calcium (Crestor) 2.5 mg PO HS [facility] Last Admin: 09/07/16 21:12 Dose: 2.5 mg - Labs Labs: 09/08/16 07:52 09/08/16 07:52 PT 10.5 SECONDS (9.7-12.2) 09/04/16 19:30 INR 0.9 09/04/16 19:30 APTT 32 SECONDS (21-34) 09/04/16 19:30 - Additional Findings Additional findings: - Constitutional Appears: Non-toxic, No Acute Distress - Head Exam Head Exam: NORMAL INSPECTION - Eye Exam Eye Exam: EOMI - ENT Exam ENT Exam: Mucous Membranes Dry - Respiratory Exam Respiratory Exam: Clear to Ausculation Bilateral, NORMAL BREATHING PATTERN. absent: Rales, Rhonchi, Wheezes - Cardiovascular Exam Cardiovascular Exam: REGULAR RHYTHM, +S1, +S2. absent: Diastolic murmur, JVD, RRR - chest pain with radiation to L arm/neck while ambulating - GI/Abdominal Exam GI & Abdominal Exam: Soft, Normal Bowel Sounds. absent: Distended, Guarding, Rigid - Extremities Exam Extremities Exam: absent: Pedal Edema, Tenderness - Back Exam Back Exam: absent: CVA tenderness (L), CVA tenderness (R), paraspinal tenderness , rash noted, vertebral tenderness - Neurological Exam Neurological Exam: Alert, Awake, Oriented x3 - Psychiatric Exam Psychiatric exam: Normal Affect, Normal Mood - Skin Skin Exam: Dry, Intact, Normal Color, Warm Assessment and Plan - Assessment and Plan (Free Text) Assessment: 1. Chest Pain of Unclear etiology ERIC negative x3 EKG: NSR, ST depression in lateral leads Cardiology (Dr. Joshi) on case s/p Cardiac Cath 09/08 -> Non obstructive coronaries, Normal EF, Control HTN, see full report. Cardiology (Dr. Leonel Harman) on case Resume ASA 81 mg po daily Crestor 2.5 mg po HS Coreg 3.125mg PO bid Imdur 30mg Po daily Lisinopril 10mg Po daily Nitrobid 1 each top Q 12 PRN chest pain Normal: lipid panel, hemoglobin a1c, TSH, T4 2. Hypertension 09/08: Start Hydralazine 10mg IVP PRN SBP >160. Coreg 3.125mg Po bid Norvasc 10 mg po daily Lisinopril 10mg daily 3. Parkinson's disease Continue home medication: Carbidopa/Levodopa 10-100 mg tab po TID FU neuro consult: pending 4. Back pain Capascin cream Heating pad d/c Motrin Monitor No complaints 5. Electrolyte Imbalance -Hypokalemia, K3.6 -> KCl PO vomited, KCl 20u IVPB; f/u labs Monitor 6. Prophylaxis hold Lovenox 40 mg SC daily in anticipation for cardiac catherization in the afternoon hold Pepcid 20 mg po daily [facility] <SherBi H - Last Filed: 09/09/16 07:33> Objective - Vital Signs/Intake and Output Vital Signs (last 24 hours): Temp Pulse Resp BP Pulse Ox 98.1 F 72 20 147/80 96 09/09/16 04:10 09/09/16 04:10 09/09/16 04:10 09/09/16 04:10 09/09/16 04:10 Intake and Output: 09/09/16 09/09/16 06:59 18:59 Intake Total 1480 Output Total 600 Balance 880 - Medications Medications: Current Medications Acetaminophen (Tylenol 325mg Tab) 650 mg PO Q6 PRN PRN Reason: Pain, moderate (4-7) Amlodipine Besylate (Norvasc) 10 mg PO DAILY [facility] Last Admin: 09/08/16 11:22 Dose: Not Given Aspirin (Aspirin Chewable) 81 mg PO DAILY [facility] Last Admin: 09/08/16 09:07 Dose: 81 mg Carbidopa/Levodopa (Sinemet 10/100) 1 tab PO BID [facility] Last Admin: 09/08/16 18:53 Dose: 1 tab Carvedilol (Coreg) 3.125 mg PO BID [facility] Last Admin: 09/08/16 18:53 Dose: 3.125 mg Enoxaparin Sodium (Lovenox) 40 mg SC DAILY [facility] Last Admin: 09/07/16 09:57 Dose: 40 mg Hydralazine HCl (Apresoline) 10 mg IVP Q6H PRN PRN Reason: HTN Sodium Chloride (Sodium Chloride 0.9%) 1,000 mls @ 60 mls/hr IV .[id number] [facility] Stop: 09/09/16 23:59 Last Admin: 09/08/16 16:39 Dose: 60 mls/hr Isosorbide Mononitrate (Imdur) 30 mg PO DAILY [facility] Last Admin: 09/08/16 09:08 Dose: 30 mg Lisinopril (Zestril) 10 mg PO DAILY [facility] Last Admin: 09/08/16 11:23 Dose: Not Given Nitroglycerin (Nitro-Bid 2% Oint) 1 ea TOP Q12 PRN PRN Reason: Chest pain Rosuvastatin Calcium (Crestor) 2.5 mg PO HS [facility] Last Admin: 09/08/16 23:16 Dose: 2.5 mg - Labs Labs: 09/08/16 07:52 09/08/16 07:52 PT 10.5 SECONDS (9.7-12.2) 09/04/16 19:30 INR 0.9 09/04/16 19:30 APTT 32 SECONDS (21-34) 09/04/16 19:30 Attending/Attestation - Attestation I have personally seen and examined this patient.: Yes I have fully participated in the care of the patient.: Yes I have reviewed all pertinent clinical information, including history, physical exam and plan: Yes Notes (Text): Medical Attending: Patient was seen and examined by me. Agree with the above note by the resident, when we saw the patient in the morning she was pending cardiac catherization for evaluation of her chest pain. When seen in the morning she appeared to be well, she did not have chest pain or shortness of breath when we saw the patient. thank you Bi Sher
[2016-09-08] MEDS ORDERED: Potassium Chloride 20 mEq/15 ml LIQ UD PO ONE (11:18)
--- NOTE | 2016-09-08 11:44 | CP.PCM.PN ---
Subjective - Date & Time of Evaluation Date of Evaluation: 09/08/16 Time of Evaluation: 11:42 - Subjective Subjective: CONDITION SAME. Objective - Vital Signs/Intake and Output Vital Signs (last 24 hours): Temp Pulse Resp BP Pulse Ox 98 F 80 18 192/97 H 97 09/08/16 07:45 09/08/16 08:46 09/08/16 07:45 09/08/16 07:45 09/08/16 07:45 Intake and Output: 09/08/16 09/08/16 06:59 18:59 Intake Total 120 Output Total 1 Balance 119 - Medications Medications: Current Medications Acetaminophen (Tylenol 325mg Tab) 650 mg PO Q6 PRN PRN Reason: Pain, moderate (4-7) Amlodipine Besylate (Norvasc) 10 mg PO DAILY [facility] Last Admin: 09/08/16 11:22 Dose: Not Given Aspirin (Aspirin Chewable) 81 mg PO DAILY [facility] Last Admin: 09/08/16 09:07 Dose: 81 mg Carbidopa/Levodopa (Sinemet 10/100) 1 tab PO BID [facility] Last Admin: 09/08/16 09:07 Dose: 1 tab Carvedilol (Coreg) 3.125 mg PO BID [facility] Last Admin: 09/08/16 11:22 Dose: Not Given Enoxaparin Sodium (Lovenox) 40 mg SC DAILY [facility] Last Admin: 09/07/16 09:57 Dose: 40 mg Hydralazine HCl (Apresoline) 10 mg IVP Q6H PRN PRN Reason: HTN Isosorbide Mononitrate (Imdur) 30 mg PO DAILY [facility] Last Admin: 09/08/16 09:08 Dose: 30 mg Lisinopril (Zestril) 10 mg PO DAILY [facility] Last Admin: 09/08/16 11:23 Dose: Not Given Nitroglycerin (Nitro-Bid 2% Oint) 1 ea TOP Q12 PRN PRN Reason: Chest pain Rosuvastatin Calcium (Crestor) 2.5 mg PO HS [facility] Last Admin: 09/07/16 21:12 Dose: 2.5 mg - Labs Labs: 09/08/16 07:52 09/08/16 07:52 PT 10.5 SECONDS (9.7-12.2) 09/04/16 19:30 INR 0.9 09/04/16 19:30 APTT 32 SECONDS (21-34) 09/04/16 19:30 - Constitutional Appears: No Acute Distress, Chronically Ill - Eye Exam Eye Exam: Normal appearance, PERRL - ENT Exam ENT Exam: Normal Exam - Respiratory Exam Respiratory Exam: Clear to Ausculation Bilateral, NORMAL BREATHING PATTERN - Cardiovascular Exam Cardiovascular Exam: REGULAR RHYTHM, +S1, +S2 - GI/Abdominal Exam GI & Abdominal Exam: Soft, Normal Bowel Sounds - Extremities Exam Extremities Exam: Full ROM, Normal Capillary Refill, Normal Inspection. absent : Joint Swelling, Pedal Edema - Neurological Exam Neurological Exam: Alert, Awake, CN II-XII Intact, Normal Gait, Oriented x3 - Psychiatric Exam Psychiatric exam: Normal Affect, Normal Mood Assessment and Plan - Assessment and Plan (Free Text) Assessment: R/O CAD. Plan: FOR CATH TODAY.
[2016-09-08] MEDS ORDERED: Potassium Chloride 20 mEq 100 ML IVPB ONE (11:54)
--- NOTE | 2016-09-08 14:18 | VASCLAB ---
PROCEDURE: Lower Extremity Venous Duplex Exam. HISTORY: calf tenderness PRIORS: None. TECHNIQUE: Bilateral common femoral, femoral, popliteal and posterior tibial, peroneal and great saphenous veins were evaluated. Flow was assessed with color Doppler, compressibility, assessment of phasic flow and augmentation response. Report prepared by SUSHILA Mtz FINDINGS: RIGHT: 1. Common Femoral Vein: 1.1. Compressibility - Fully compressible: Thrombus - None : Flow - Phasic: Augmentation -Normal: Reflux - None. 2. Femoral Vein: 2.1. Compressibility - Fully compressible: Thrombus - None : Flow - Phasic: Augmentation -Normal: Reflux - None. 3. Popliteal Vein: 3.1. Compressibility - Fully compressible: Thrombus - None : Flow - Phasic: Augmentation -Normal: Reflux - None. 4. Posterior Tibial Vein: 4.1. Compressibility - Fully compressible: Thrombus - None: Flow - Phasic: Augmentation -Normal: Reflux - None. 5. Peroneal Vein: 5.1. Compressibility - Fully compressible: Thrombus - None: Flow - Phasic: Augmentation -Normal: Reflux - None. 6. Great Saphenous Vein: 6.1. Compressibility - Fully compressible: Thrombus - None: Flow - Phasic: Augmentation - Normal: Reflux - None. LEFT: 1. Common Femoral Vein: 1.1. Compressibility - Fully compressible: Thrombus - None: Flow - Phasic: Augmentation -Normal: Reflux - None. 2. Femoral Vein: 2.1. Compressibility - Fully compressible: Thrombus - None: Flow - Phasic: Augmentation -Normal: Reflux - None. 3. Popliteal Vein: 3.1. Compressibility - Fully compressible: Thrombus - None : Flow - Phasic: Augmentation -Normal: Reflux - None. 4. Posterior Tibial Vein: 4.1. Compressibility - Fully compressible: Thrombus - None: Flow - Phasic: Augmentation -Normal: Reflux - None. 5. Peroneal Vein: 5.1. Compressibility - Fully compressible: Thrombus - None: Flow - Phasic: Augmentation -Normal: Reflux - None. 6. Great Saphenous Vein: 6.1. Compressibility - Fully compressible: Thrombus - None: Flow - Phasic: Augmentation - Normal: Reflux - None. OTHER FINDINGS: Right: None significant. Left: None significant. IMPRESSION: Right: No evidence of deep or superficial vein thrombosis of the right lower extremity. Normal valve function noted of the right side. Left: No evidence of deep or superficial vein thrombosis of the left lower extremity. Normal valve function noted of the left side.
[2016-09-08] MEDS ORDERED: Midazolam 2 MG/2 ML VIAL ONE (15:11)
--- NOTE | 2016-09-08 15:59 | CP.PCM.PN ---
Subjective - Date & Time of Evaluation Date of Evaluation: 09/08/16 Time of Evaluation: 15:55 - Subjective Subjective: Patient s/p Cath Non obstructive coronaries Normal EF Full cath report dictated Control HTN Medical management Objective - Vital Signs/Intake and Output Vital Signs (last 24 hours): Temp Pulse Resp BP Pulse Ox 98 F 80 18 192/97 H 97 09/08/16 07:45 09/08/16 08:46 09/08/16 07:45 09/08/16 07:45 09/08/16 07:45 Intake and Output: 09/08/16 09/08/16 06:59 18:59 Intake Total 120 Output Total 1 Balance 119 - Medications Medications: Current Medications Acetaminophen (Tylenol 325mg Tab) 650 mg PO Q6 PRN PRN Reason: Pain, moderate (4-7) Amlodipine Besylate (Norvasc) 10 mg PO DAILY [facility] Last Admin: 09/08/16 11:22 Dose: Not Given Aspirin (Aspirin Chewable) 81 mg PO DAILY [facility] Last Admin: 09/08/16 09:07 Dose: 81 mg Carbidopa/Levodopa (Sinemet 10/100) 1 tab PO BID [facility] Last Admin: 09/08/16 09:07 Dose: 1 tab Carvedilol (Coreg) 3.125 mg PO BID [facility] Last Admin: 09/08/16 11:22 Dose: Not Given Enoxaparin Sodium (Lovenox) 40 mg SC DAILY [facility] Last Admin: 09/07/16 09:57 Dose: 40 mg Hydralazine HCl (Apresoline) 10 mg IVP Q6H PRN PRN Reason: HTN Sodium Chloride (Sodium Chloride 0.9%) 1,000 mls @ 60 mls/hr IV .[id number] [facility] Stop: 09/09/16 23:59 Isosorbide Mononitrate (Imdur) 30 mg PO DAILY [facility] Last Admin: 09/08/16 09:08 Dose: 30 mg Lisinopril (Zestril) 10 mg PO DAILY [facility] Last Admin: 09/08/16 11:23 Dose: Not Given Nitroglycerin (Nitro-Bid 2% Oint) 1 ea TOP Q12 PRN PRN Reason: Chest pain Rosuvastatin Calcium (Crestor) 2.5 mg PO HS [facility] Last Admin: 09/07/16 21:12 Dose: 2.5 mg - Labs Labs: 09/08/16 07:52 09/08/16 07:52 PT 10.5 SECONDS (9.7-12.2) 09/04/16 19:30 INR 0.9 09/04/16 19:30 APTT 32 SECONDS (21-34) 09/04/16 19:30
[2016-09-08] MEDS: Sodium Chloride 0.9% 1,000 ML IV SCH (16:39)
--- NOTE | 2016-09-08 17:02 | CARDCATH ---
PROCEDURE DATE: 09/08/2016 PROCEDURES: 1. Left heart catheterization. 2. Coronary angiogram. CLINICAL INDICATIONS: Angina, hypertension, hyperlipidemia and parkinsonism. REFERRING PHYSICIAN: Dr. Jakob Harman. PERFORMING PHYSICIAN: Dr. Jostin Joshi. PROCEDURE: After informed consent, patient was prepped and draped in the usual sterile fashion. 2% lidocaine was given in the right groin for local anesthesia. Using micropuncture technique, 6-[place] sheath was introduced into right common femoral artery. Using the usual diagnostic catheters, left heart catheterization and coronary angiogram was performed . The patient tolerated the procedure well. FINDINGS: 1. Left main coronary artery is patent. 2. Left anterior descending and diagonal branches are patent. 3. Ramus has ostial 50% nonobstructive stenosis. 4. Proximal left circumflex is patent. Obtuse marginal branches are patent. However, distal left c ircumflex is small, 100% occluded. 5. Right coronary artery is dominant and patent. 6. Left ventricular ejection fraction is approximately 70%. No wall motion abnormalities. EDP ____ . No gradient across the aortic valve. IMPRESSION: 1. Abnormal coronaries. Nonobstructive coronary artery disease. 2. Normal left ventricular systolic function. RECOMMENDATIONS: Recommend medical management including risk factor modification. Jostin Joshi MD cc: [id number] TT: 09/08/2016 17:01:20 jn
[2016-09-08] MEDS: Rosuvastatin Calcium 2.5 mg Tab PO SCH (23:16)
[2016-09-09 01:21] VITALS: RESP 20
[2016-09-09 04:44] VITALS: PULSE 72
[2016-09-09 08:05] LABS: BASO # 0.1 K/uL (0.0-0.2); BASO % 0.7 % (0.0-2.0); EOS # 0.1 K/uL (0.0-0.7); EOS % 1.3 % (0.0-4.0); HEMATOCRIT 35.6 % (34.0-47.0); LYMPH # 1.6 K/uL (1.0-4.3); LYMPH % 21.9 % (20.0-40.0); MEAN CELL VOLUME 89.7 fL (81.0-99.0); MEAN CORPUSCULAR HEMOGLOBIN 29.5 pg (27.0-31.0); MEAN CORPUSCULAR HGB CONC 32.9 g/dL (33.0-37.0); MEAN PLATELET VOLUME 7.7 fL (7.2-11.7); MONO # 0.7 K/uL (0.0-0.8); MONO % 9.5 % (0.0-10.0); RED CELL DISTRIBUTION WIDTH 12.9 % (11.5-14.5); WHITE BLOOD COUNT 7.2 K/uL (4.8-10.8)
[2016-09-09 08:18] LABS: CHLORIDE 101 mmol/L (98-107); POTASSIUM 3.8 mmol/L (3.6-5.2); SODIUM 142 mmol/L (132-148)
[2016-09-09 08:20] LABS: ALB/GLOB RATIO 1.1 (1.0-2.1); ALKALINE PHOSPHATASE 76 U/L (38-126); AST/SGOT 19 U/L (14-36); BILIRUBIN,TOTAL 0.6 mg/dL (0.2-1.3); BLOOD UREA NITROGEN 16 mg/dL (7-17); CARBON DIOXIDE 28 mmol/L (22-30); GFR AFRICAN-AMERICAN > 60; TOTAL PROTEIN 7.3 g/dL (6.3-8.3)
[2016-09-09 08:21] LABS: ALT/SGPT 14 U/L (9-52); CALCIUM 9.1 mg/dl (8.6-10.4); GLUCOSE,RANDOM 77 mg/dL (65-105); PHOSPHOROUS 3.3 mg/dL (2.5-4.5)
[2016-09-09 08:23] VITALS: BP 155/79; TEMP 98.4; O2SAT 97
[2016-09-09] MEDS: Sodium Chloride 0.9% 1,000 ML IV SCH (08:27)
--- NOTE | 2016-09-09 12:55 | CP.PCM.PN ---
Subjective - Date & Time of Evaluation Date of Evaluation: 09/09/16 Time of Evaluation: 12:53 - Subjective Subjective: POST CARDIAC CATH. CORONARIES NON OBSTRUCTIVE. BP OK. Objective - Vital Signs/Intake and Output Vital Signs (last 24 hours): Temp Pulse Resp BP Pulse Ox 98.4 F 72 20 155/79 H 97 09/09/16 07:21 09/09/16 08:16 09/09/16 07:21 09/09/16 07:21 09/09/16 07:21 Intake and Output: 09/09/16 09/09/16 06:59 18:59 Intake Total 1480 Output Total 600 Balance 880 - Labs Labs: 09/09/16 07:49 09/09/16 07:49 PT 10.5 SECONDS (9.7-12.2) 09/04/16 19:30 INR 0.9 09/04/16 19:30 APTT 32 SECONDS (21-34) 09/04/16 19:30 - Constitutional Appears: No Acute Distress, Chronically Ill - Eye Exam Eye Exam: Normal appearance, PERRL - ENT Exam ENT Exam: Normal Exam - Respiratory Exam Respiratory Exam: Clear to Ausculation Bilateral, NORMAL BREATHING PATTERN - Cardiovascular Exam Cardiovascular Exam: REGULAR RHYTHM, +S1, +S2 - GI/Abdominal Exam GI & Abdominal Exam: Soft, Normal Bowel Sounds - Extremities Exam Extremities Exam: Full ROM, Normal Capillary Refill, Normal Inspection. absent : Joint Swelling, Pedal Edema - Back Exam Back Exam: NORMAL INSPECTION - Neurological Exam Neurological Exam: Alert, Awake, CN II-XII Intact, Normal Gait, Oriented x3 - Psychiatric Exam Psychiatric exam: Normal Affect, Normal Mood Assessment and Plan - Assessment and Plan (Free Text) Assessment: STABLE. Plan: OK FOR DISCHARGE. CT SAME MEDICINES.
--- NOTE | 2016-09-09 14:11 | CP.PCM.DIS ---
<JessicamiraBi - Last Filed: 09/09/16 21:31> Provider - Provider Date of Admission: 09/04/16 23:22 Attending physician: Jose Arriaga MD Consults: Neurology - Dr. Handley Cardio: Dr. Adi Rodriguez Time Spent in preparation of Discharge (in minutes): 40 Hospital Course - Lab Results Lab Results: Most Recent Lab Values WBC 7.2 K/uL (4.8-10.8) 09/09/16 07:49 RBC 3.98 Mil/uL (3.80-5.20) 09/09/16 07:49 Hgb 11.7 g/dL (11.0-16.0) 09/09/16 07:49 Hct 35.6 % (34.0-47.0) 09/09/16 07:49 MCV 89.7 fL (81.0-99.0) 09/09/16 07:49 MCH 29.5 pg (27.0-31.0) 09/09/16 07:49 MCHC 32.9 g/dL (33.0-37.0) L 09/09/16 07:49 RDW 12.9 % (11.5-14.5) 09/09/16 07:49 Plt Count 264 K/uL (130-400) 09/09/16 07:49 MPV 7.7 fL (7.2-11.7) 09/09/16 07:49 Neut % (Auto) 66.6 % (50.0-75.0) 09/09/16 07:49 Lymph % (Auto) 21.9 % (20.0-40.0) 09/09/16 07:49 Wheeler % (Auto) 9.5 % (0.0-10.0) 09/09/16 07:49 Eos % (Auto) 1.3 % (0.0-4.0) 09/09/16 07:49 Baso % (Auto) 0.7 % (0.0-2.0) 09/09/16 07:49 Neut # 4.8 K/uL (1.8-7.0) 09/09/16 07:49 Lymph # 1.6 K/uL (1.0-4.3) 09/09/16 07:49 Wheeler # 0.7 K/uL (0.0-0.8) 09/09/16 07:49 Eos # 0.1 K/uL (0.0-0.7) 09/09/16 07:49 Baso # 0.1 K/uL (0.0-0.2) 09/09/16 07:49 PT 10.5 SECONDS (9.7-12.2) 09/04/16 19:30 INR 0.9 09/04/16 19:30 APTT 32 SECONDS (21-34) 09/04/16 19:30 Sodium 142 mmol/L (132-148) 09/09/16 07:49 Potassium 3.8 mmol/L (3.6-5.2) 09/09/16 07:49 Chloride 101 mmol/L (98-107) 09/09/16 07:49 Carbon Dioxide 28 mmol/L (22-30) 09/09/16 07:49 Anion Gap 16 (10-20) 09/09/16 07:49 BUN 16 mg/dL (7-17) 09/09/16 07:49 Creatinine 0.6 MG/DL (0.7-1.2) L 09/09/16 07:49 Est GFR ( Amer) > 60 09/09/16 07:49 Est GFR (Non-Af Amer) > 60 09/09/16 07:49 POC Glucose (mg/dL) 79 mg/dL (65-110) 09/04/16 19:32 Random Glucose 77 mg/dL (65-105) 09/09/16 07:49 Hemoglobin A1c 5.4 % (4.2-6.5) 09/06/16 07:45 Calcium 9.1 mg/dl (8.6-10.4) 09/09/16 07:49 Phosphorus 3.3 mg/dL (2.5-4.5) 09/09/16 07:49 Magnesium 2.0 mg/dL (1.6-2.3) 09/09/16 07:49 Total Bilirubin 0.6 mg/dL (0.2-1.3) 09/09/16 07:49 AST 19 U/L (14-36) 09/09/16 07:49 ALT 14 U/L (9-52) 09/09/16 07:49 Alkaline Phosphatase 76 U/L (38-126) 09/09/16 07:49 Total Creatine Kinase 35 U/L (30-135) 09/07/16 11:08 CK-MB (Mass) < 0.22 ng/mL (0.0-3.38) 09/07/16 11:08 Troponin I < 0.0120 ng/mL (0.00-0.120) 09/04/16 19:30 Troponin I, Quant < 0.0120 ng/mL (0.00-0.120) 09/07/16 11:08 NT-Pro-B Natriuret Pep 87.1 pg/mL (0-900) 09/04/16 19:30 Total Protein 7.3 g/dL (6.3-8.3) 09/09/16 07:49 Albumin 3.9 g/dL (3.5-5.0) 09/09/16 07:49 Globulin 3.4 gm/dL (2.2-3.9) 09/09/16 07:49 Albumin/Globulin Ratio 1.1 (1.0-2.1) 09/09/16 07:49 Triglycerides 159 mg/dL (0-149) H 09/06/16 07:45 Cholesterol 267 mg/dL (0-199) H 09/06/16 07:45 LDL Cholesterol Direct 126 mg/dL (0-129) 09/06/16 07:45 HDL Cholesterol 61 mg/dL (30-70) 09/06/16 07:45 Thyroxine (T4) 9.09 ug/dL (5.5-11.0) 09/06/16 07:45 TSH 3rd Generation 0.61 mIU/L (0.46-4.68) 09/06/16 07:45 - Hospital Course Hospital Course: Upon hospital admission: Pt is 66F with medical history significant for Parkinson's disease and hypertension who presents to the emergency department with chest pain. Patient states she developed dull sternal, non-radiating chest pain while she was at physical therapy earlier this afternoon. She admits to mild shortness of breath with onset of chest pain. She denies nausea, vomiting, and diaphoresis. Patient recently had a left hip replacement in May 2016 but has been ambulating and not bed bound. Patient also complains of pain to left hip and right calf. Patient took Aspirin 81 mg x4 tabs and an extra dose of Norvasc 10 mg po prior to arrival to ED. She denies fever, chills, pleurtic chest pain, palpitations, nausea, vomiting, abdominal pain, constipation, diarrhea, and urinary symptoms and currently is resting comfortably. Medications: Carbidopa/Levodopa 10-100 tab po TID, Norvasc 10 mg po daily, Metoprolol 100 mg po BID Allergies: NKDA Family History: Mother - hypertension, DMII, COPD/Asthma Surgical History: L hip replacement Social: Never smoker. Denies alcohol and illicit drug use. During hospital course, the patient was evaluated and treated for the following : 1. Chest Pain of Unclear etiology. Cardiology (Dr. Joshi) on case, performed Cardiac Cath 09/08 -> Non obstructive coronaries, Normal EF, Control HTN, see full report. Cardiology (Dr. Leonel Harman) on case. Patient tx with ASA 81 mg po daily; Crestor 2.5 mg po HS; Coreg 3.125mg PO bid; Imdur 30mg Po daily; Lisinopril 10mg Po daily; Nitrobid 1 each top Q 12 PRN chest pain. Normal: lipid panel, hemoglobin a1c, TSH, T4. ERIC negative x3. EKG: NSR, ST depression in lateral leads. LE doppler negative. 2. Hypertension tx with Hydralazine 10mg IVP PRN SBP >160; Coreg 3.125mg Po bid; Norvasc 10 mg po daily; Lisinopril 10mg daily. 3. Parkinson's disease tx with home med Carbidopa/ Levodopa 10-100 mg tab po TID. However, Neurology Dr. Handley feels that patient does not have parkinsons dz. See D/C instructions below. 4. Back pain tx with Capascin cream and Heating pad. Upon hospital discharge, the patient was provided with the following instructions: Patient is stable for discharge per Dr. Sher. Patient should resume all medications as outlined in this document. Additionally, patient should take the new medications listed below (scripts provided). 1. Please make an appointment and follow up with Primary Doctor within one week of discharge. If patient does not have a Primary Doctor, please follow up with [facility] to establish medical care, at [phone]. 2. Please make an appointment and follow up with a Neurologist within one week of discharge. Your primary doctor can refer you if you do not already see a neurologist. According to your evaluation, you do not have clinical signs of Parkinson disease. 3. Please make an appointment for a DaTscan to establish any basal ganglia disease or Parkinsons disease 4. Dr. Handley (neurology) recommends that your Neurologist taper your dose of Sinemet (parkinson's medication) to twice a day, and then a week from now once a day, and then discontinued if you respond well. Your neurologist has to evaluate your symptoms for progress / change. Patient should return to ED immediately if symptoms return or worsen. Instructions discussed with patient who understood and agreed. Newly prescribed medications: ASA 81mg PO daily #30 Carbidopa/Levodopa 10-100 PO BID #60 (speak to your neurologist about possibly stopping this medication) Coreg 3.125mg PO BID #60 Imdur 30mg PO daily #30 Lisinopril 10mg PO daily #30 Crestor 2.5mg PO daily #30 Amlodipine 10mg PO daily #30 This is a summary of the patient's hospital admission, see chart for comprehensive detail. - Date & Time of H&P Date of H&P: 09/04/16 Time of H&P: 23:14 Discharge Exam - Additional Findings Additional findings: - Constitutional Appears: Non-toxic, No Acute Distress - Head Exam Head Exam: NORMAL INSPECTION - Eye Exam Eye Exam: EOMI - ENT Exam ENT Exam: Mucous Membranes Dry - Respiratory Exam Respiratory Exam: Clear to Ausculation Bilateral, NORMAL BREATHING PATTERN. absent: Rales, Rhonchi, Wheezes - Cardiovascular Exam Cardiovascular Exam: REGULAR RHYTHM, +S1, +S2. absent: Diastolic murmur, JVD, RRR - chest pain with radiation to L arm/neck while ambulating - GI/Abdominal Exam GI & Abdominal Exam: Soft, Normal Bowel Sounds. absent: Distended, Guarding, Rigid - Extremities Exam Extremities Exam: absent: Pedal Edema, Tenderness - Back Exam Back Exam: absent: CVA tenderness (L), CVA tenderness (R), paraspinal tenderness , rash noted, vertebral tenderness - Neurological Exam Neurological Exam: Alert, Awake, Oriented x3 - Psychiatric Exam Psychiatric exam: Normal Affect, Normal Mood - Skin Skin Exam: Dry, Intact, Normal Color, Warm Discharge Plan - Discharge Medications Prescriptions: Aspirin [Aspirin Chewable] 81 mg PO DAILY #30 chew Carbidopa/Levodopa [Carbidopa-Levodopa 10-100 Tab] 1 each PO BID #60 tablet Carvedilol [Coreg] 3.125 mg PO BID #60 tab Isosorbide Mononitrate [Imdur] 30 mg PO DAILY #30 tab Lisinopril [Zestril] 10 mg PO DAILY #30 tab Rosuvastatin Calcium 2.5 [Crestor] 2.5 mg PO HS #30 tab amLODIPine [Norvasc] 10 mg PO DAILY #30 tab - Follow Up Plan Condition: GOOD Disposition: HOME/ ROUTINE Instructions: Carbidopa/Levodopa (By mouth), Lisinopril (By mouth), Aspirin ( By mouth), Amlodipine (By mouth), Isosorbide Mononitrate (By mouth), Carvedilol (By mouth), Rosuvastatin (By mouth), Chest Pain (DC), Heart Healthy Diet (DC), Heart Catheterization (DC) Additional Instructions: Patient is stable for discharge per Dr. Sher. Patient should resume all medications as outlined in this document. Additionally, patient should take the new medications listed below (scripts provided). 1. Please make an appointment and follow up with Primary Doctor within one week of discharge. If patient does not have a Primary Doctor, please follow up with [facility] to establish medical care, at [phone]. 2. Please make an appointment and follow up with a Neurologist within one week of discharge. Your primary doctor can refer you if you do not already see a neurologist. According to your evaluation, you do not have clinical signs of Parkinson disease. 3. Please make an appointment for a DaTscan to establish any basal ganglia disease or Parkinsons disease 4. Dr. Handley (neurology) recommends that your Neurologist taper your dose of Sinemet (parkinson's medication) to twice a day, and then a week from now once a day, and then discontinued if you respond well. Your neurologist has to evaluate your symptoms for progress / change. Patient should return to ED immediately if symptoms return or worsen. Instructions discussed with patient who understood and agreed. Newly prescribed medications: ASA 81mg PO daily #30 Carbidopa/Levodopa 10-100 PO BID #60 (speak to your neurologist about possibly stopping this medication) Coreg 3.125mg PO BID #60 Imdur 30mg PO daily #30 Lisinopril 10mg PO daily #30 Crestor 2.5mg PO daily #30 Amlodipine 10mg PO daily #30 Referrals: [facility] [Outside] <Bi Sher Mary - Last Filed: 09/10/16 07:53> Provider - Provider Date of Admission: 09/04/16 23:22 Attending physician: Jose Arriaga MD Hospital Course - Lab Results Lab Results: Most Recent Lab Values WBC 7.2 K/uL (4.8-10.8) 09/09/16 07:49 RBC 3.98 Mil/uL (3.80-5.20) 09/09/16 07:49 Hgb 11.7 g/dL (11.0-16.0) 09/09/16 07:49 Hct 35.6 % (34.0-47.0) 09/09/16 07:49 MCV 89.7 fL (81.0-99.0) 09/09/16 07:49 MCH 29.5 pg (27.0-31.0) 09/09/16 07:49 MCHC 32.9 g/dL (33.0-37.0) L 09/09/16 07:49 RDW 12.9 % (11.5-14.5) 09/09/16 07:49 Plt Count 264 K/uL (130-400) 09/09/16 07:49 MPV 7.7 fL (7.2-11.7) 09/09/16 07:49 Neut % (Auto) 66.6 % (50.0-75.0) 09/09/16 07:49 Lymph % (Auto) 21.9 % (20.0-40.0) 09/09/16 07:49 Wheeler % (Auto) 9.5 % (0.0-10.0) 09/09/16 07:49 Eos % (Auto) 1.3 % (0.0-4.0) 09/09/16 07:49 Baso % (Auto) 0.7 % (0.0-2.0) 09/09/16 07:49 Neut # 4.8 K/uL (1.8-7.0) 09/09/16 07:49 Lymph # 1.6 K/uL (1.0-4.3) 09/09/16 07:49 Wheeler # 0.7 K/uL (0.0-0.8) 09/09/16 07:49 Eos # 0.1 K/uL (0.0-0.7) 09/09/16 07:49 Baso # 0.1 K/uL (0.0-0.2) 09/09/16 07:49 PT 10.5 SECONDS (9.7-12.2) 09/04/16 19:30 INR 0.9 09/04/16 19:30 APTT 32 SECONDS (21-34) 09/04/16 19:30 Sodium 142 mmol/L (132-148) 09/09/16 07:49 Potassium 3.8 mmol/L (3.6-5.2) 09/09/16 07:49 Chloride 101 mmol/L (98-107) 09/09/16 07:49 Carbon Dioxide 28 mmol/L (22-30) 09/09/16 07:49 Anion Gap 16 (10-20) 09/09/16 07:49 BUN 16 mg/dL (7-17) 09/09/16 07:49 Creatinine 0.6 MG/DL (0.7-1.2) L 09/09/16 07:49 Est GFR ( Amer) > 60 09/09/16 07:49 Est GFR (Non-Af Amer) > 60 09/09/16 07:49 POC Glucose (mg/dL) 79 mg/dL (65-110) 09/04/16 19:32 Random Glucose 77 mg/dL (65-105) 09/09/16 07:49 Hemoglobin A1c 5.4 % (4.2-6.5) 09/06/16 07:45 Calcium 9.1 mg/dl (8.6-10.4) 09/09/16 07:49 Phosphorus 3.3 mg/dL (2.5-4.5) 09/09/16 07:49 Magnesium 2.0 mg/dL (1.6-2.3) 09/09/16 07:49 Total Bilirubin 0.6 mg/dL (0.2-1.3) 09/09/16 07:49 AST 19 U/L (14-36) 09/09/16 07:49 ALT 14 U/L (9-52) 09/09/16 07:49 Alkaline Phosphatase 76 U/L (38-126) 09/09/16 07:49 Total Creatine Kinase 35 U/L (30-135) 09/07/16 11:08 CK-MB (Mass) < 0.22 ng/mL (0.0-3.38) 09/07/16 11:08 Troponin I < 0.0120 ng/mL (0.00-0.120) 09/04/16 19:30 Troponin I, Quant < 0.0120 ng/mL (0.00-0.120) 09/07/16 11:08 NT-Pro-B Natriuret Pep 87.1 pg/mL (0-900) 09/04/16 19:30 Total Protein 7.3 g/dL (6.3-8.3) 09/09/16 07:49 Albumin 3.9 g/dL (3.5-5.0) 09/09/16 07:49 Globulin 3.4 gm/dL (2.2-3.9) 09/09/16 07:49 Albumin/Globulin Ratio 1.1 (1.0-2.1) 09/09/16 07:49 Triglycerides 159 mg/dL (0-149) H 09/06/16 07:45 Cholesterol 267 mg/dL (0-199) H 09/06/16 07:45 LDL Cholesterol Direct 126 mg/dL (0-129) 09/06/16 07:45 HDL Cholesterol 61 mg/dL (30-70) 09/06/16 07:45 Thyroxine (T4) 9.09 ug/dL (5.5-11.0) 09/06/16 07:45 TSH 3rd Generation 0.61 mIU/L (0.46-4.68) 09/06/16 07:45 Attending/Attestation - Attestation I have personally seen and examined this patient.: Yes I have fully participated in the care of the patient.: Yes I have reviewed all pertinent clinical information, including history, physical exam and plan: Yes Notes (Text): 09/10/16 07:50 Medical Attending: Patient was seen and examined by me. Agree with the above note by the resident. Patient completed cardiac cath and this was negative for any acute findings. She will need to be on ASA, statin as well as blood pressure control. While here she was evaluated by neurology as well and while she is on carbidopa - levopdoda she will need to follow up with neurology outpatient since there is some thought she may or may not have Parkinson's disease. thank you Bi Sher 09/10/16 07:52
== END 2016-09-09 12:48 | disposition home or self-care (01) | DRG 287 ==
LOC: C.ER 18:48 → C.9E 22:29 → C.6T 22:59 → OBSVTOIN 23:22
PROVIDERS: ADMIT Family Medicine; ATTEND Family Medicine
PROC: B2151ZZ Fluoroscopy of Left Heart using Low Osmolar Contrast (ICD-10-PCS; 2016-09-08)
PROC: B2111ZZ Fluoroscopy of Multiple Coronary Arteries using Low Osmolar Contrast (ICD-10-PCS; 2016-09-08)
PROC: 4A023N7 Measurement of Cardiac Sampling and Pressure, Left Heart, Percutaneous Approach (ICD-10-PCS; principal; 2016-09-08 14:00)
DX: I25.119 Atherosclerotic heart disease of native coronary artery with unspecified angina pectoris (principal); J44.9 Chronic obstructive pulmonary disease, unspecified; I10 Essential (primary) hypertension; R07.9 Chest pain, unspecified; J45.909 Unspecified asthma, uncomplicated; E11.9 Type 2 diabetes mellitus without complications; Z83.3 Family history of diabetes mellitus; Z82.49 Family history of ischemic heart disease and other diseases of the circulatory system; Z96.642 Presence of left artificial hip joint; E87.6 Hypokalemia; E78.5 Hyperlipidemia, unspecified; Z79.899 Other long term (current) drug therapy; M19.90 Unspecified osteoarthritis, unspecified site; Z79.82 Long term (current) use of aspirin

== ENCOUNTER 2018-07-30 10:19 | Emergency (ER) | payer MEDICARE, OTHER ==
[2018-07-30 10:19] VITALS: BMI 25.0
[2018-07-30 10:25] VITALS: TEMP 99.3
[2018-07-30] MEDS ORDERED: Labetalol 25mg/5ml Syringe IVP STA (10:41)
[2018-07-30] MEDS ORDERED: DiphenhydrAMINE 50 mg/ml Inj IVP STA (10:42)
[2018-07-30] MEDS ORDERED: DiphenhydrAMINE 50 mg/ml Inj ONE (10:44)
[2018-07-30] MEDS ORDERED: MethylPREDNISolone 40 mg Vial ONE (10:45)
[2018-07-30] MEDS ORDERED: Labetalol 5mg/ml (4ml) ONE (10:45)
--- NOTE | 2018-07-30 10:57 | C.PDOC ---
History Of Present Illness 68 y/o female pt with hx of HTN presents to the ER c/o allergic reaction from last night. Pt reports she ate some food and her face became red and painful anf began to swell. Pt does not have any other complaints and denies foot tightness, SOB and chest pain. Time Seen by Provider: 07/30/18 10:31 Chief Complaint (Nursing): Allergic Reaction History Per: Patient History/Exam Limitations: no limitations Onset/Duration Of Symptoms: Days (x1) Current Symptoms Are (Timing): Still Present Context: Food Associated Symptoms: Swelling, Redness Past Medical History Reviewed: Historical Data, Nursing Documentation, Vital Signs Vital Signs: Last Vital Signs Temp 99.3 F 07/30/18 10:25 Pulse 99 H 07/30/18 10:30 Resp 20 07/30/18 10:30 BP 230/112 H 07/30/18 10:30 Pulse Ox 99 07/30/18 10:30 - Medical History PMH: Arthritis, HTN, Parkinson's Disease - [facility] Procedures FLUOROSCOPY OF LEFT HEART USING LOW OSMOLAR CONTRAST (09/04/16) FLUOROSCOPY OF MULT COR ART USING L OSM CONTRAST (09/04/16) MEASURE OF CARDIAC SAMPL & PRESSURE, L HEART, PERC APPROACH (09/04/16) REPLACE L HIP JT, FEMORAL W SYNTH SUB, UNCEMENT, OPEN (06/09/16) Family History: States: Unknown Family Hx - Social History Hx Alcohol Use: No Hx Substance Use: No - Immunization History Hx Tetanus Toxoid Vaccination: No Hx Influenza Vaccination: No Hx Pneumococcal Vaccination: No Review Of Systems Except As Marked, All Systems Reviewed And Found Negative. Constitutional: Positive for: Other (face pain ) Cardiovascular: Negative for: Chest Pain Respiratory: Negative for: Shortness of Breath Musculoskeletal: Negative for: Other (foot tightness ) Skin: Positive for: Other (face skin swelling and redness ) Physical Exam - Physical Exam Appears: Non-toxic, No Acute Distress Skin: Warm, Dry, No Rash Head: Normacephalic Oral Mucosa: Moist Throat: Normal, No Erythema, No Exudate Neck: Normal ROM, Supple, No Other (JVD ) Chest: Symmetrical, No Deformity Cardiovascular: Rhythm Regular Respiratory: Normal Breath Sounds, No Stridor, No Wheezing Gastrointestinal/Abdominal: Soft, No Tenderness, No Distention, No Guarding, No Rebound Neurological/Psych: Oriented x3, Normal Speech, Normal Cognition, Normal Motor, Normal Sensation ED Course And Treatment - Laboratory Results Result Diagrams: 07/30/18 11:02 07/30/18 11:02 O2 Sat by Pulse Oximetry: 99 (RA) Pulse Ox Interpretation: Normal Medical Decision Making Medical Decision Making: Impression: angio edema plans: -- chem labs -- blood work -- benadryl -- pepsid -- solu-medrol -- trandate Reassess: Patient is resting comfortably, tolerating PO, has no shortness of breath, has no intra-oral swelling, no stridor. Patient notes that redness, pain and swelling has improved. Patient was advised to avoid potential allergens, and to follow up with physician in 1-2 days. Disposition - Disposition Referrals: [facility] [Outside] [facility] at [facility] [Outside] [facility] [place] [Outside] Disposition: HOME/ ROUTINE Disposition Time: 12:25 Condition: IMPROVED Prescriptions: DiphenhydrAMINE [Benadryl] 25 mg PO Q6 #20 cap Famotidine [Pepcid] 40 mg PO DAILY #7 tablet Ibuprofen [Motrin] 600 mg PO Q6 #20 tab oxyCODONE/Acetaminophen [Percocet 5/325 mg Tab] 1 ea PO Q4 #12 tab Prednisone 50 mg PO DAILY #4 tab Instructions: High Blood Pressure in Adults, Angioedema Forms: [facility] (Welsh) - Clinical Impression Clinical Impression: Angioedema - Scribe Statement The provider has reviewed the documentation as recorded by the Dixie Chance Do Provider Attestation: All medical record entries made by the Scribe were at my direction and personally dictated by me. I have reviewed the chart and agree that the record accurately reflects my personal performance of the history, physical exam, medical decision making, and the department course for this patient. I have also personally directed, reviewed, and agree with the discharge instructions and disposition.
[2018-07-30 11:06] LABS: BASO # 0.1 K/uL (0.0-0.2); BASO % 0.8 % (0.0-2.0); EOS # 0.2 K/uL (0.0-0.7); EOS % 2.7 % (0.0-4.0); LYMPH # 3.1 K/uL (1.0-4.3); LYMPH % 37.3 % (20.0-40.0); MEAN CELL VOLUME 91.6 fL (81.0-99.0); MEAN CORPUSCULAR HEMOGLOBIN 30.6 pg (27.0-31.0); MEAN CORPUSCULAR HGB CONC 33.4 g/dL (33.0-37.0); MONO # 0.8 K/uL (0.0-0.8); MONO % 9.8 % (0.0-10.0); NEUT # 4.1 K/uL (1.8-7.0); NEUT % 49.4 % (50.0-75.0); RBC 4.65 Mil/uL (3.80-5.20); RED CELL DISTRIBUTION WIDTH 12.9 % (11.5-14.5); WHITE BLOOD COUNT 8.2 K/uL (4.8-10.8)
[2018-07-30 11:12] LABS: HEMOGLOBIN 14.2 g/dL (11.0-16.0)
[2018-07-30 11:22] LABS: INR 0.9; PROTHROMBIN TIME 10.1 SECONDS (9.7-12.2)
[2018-07-30 11:32] LABS: ALB/GLOB RATIO 1.2 (1.0-2.1); ALBUMIN 4.9 g/dL (3.5-5.0); ALT/SGPT 26 U/L (9-52); AST/SGOT 39 U/L (14-36); BLOOD UREA NITROGEN 15 mg/dL (7-17); CALCIUM 9.8 mg/dl (8.6-10.4); GFR NON-AFRICAN AMERICAN > 60
[2018-07-30 12:10] VITALS: BP 156/80; PULSE 79; RESP 15
[2018-07-31 16:08] VITALS: O2SAT 99
== END 2018-07-30 12:25 | disposition home or self-care (01) ==
LOC: C.ER 10:19
DX: T78.3XXA Angioneurotic edema, initial encounter (principal); I10 Essential (primary) hypertension
CPT/HCPCS: 80053; 85025; 85610; 85730; 96374; 96375; 99285; J1200; J2930